=== PATIENT | male | born 1940 | race Caucasian/White ===

== ENCOUNTER → 2016-08-04 | Outpatient (CLI) | payer OTHER, BC ==
[~2016-08-04] VITALS: Ht 167.6 cm; Wt 96.4 kg
[~2016-08-04] MED LIST: AMBEREN PO; ASPIR 8181 M1 PO; CALCIUM 600 WI1 EAC5 PO; COUMADIN 5 MG TA5 M1 PO; DIAZEPAM 10 MG10 M1 PO; ENALAPRIL MALEAT5 M1 PO; ETODOLAC 400 M400 M1 PO; FISH OIL 1,0001 EAC5 PO; FISH OIL 1,001000 M2 PO; GRALISE600 MG PO; HYDROCODON-ACE1 EAC7 PO; HYDROCODON-ACE1 EACH PO; MAGOX 400400 MG PO; NABUMETONE 750750 M1 PO; PERCOCET 10-321 EACH PO; PERCOCET PO; TOPROL XL25 MG PO; VITAMIN D1000 UNI1 PO; VOLTAREN GEL 1100 G1 TOP; XARELTO10 MG PO; ZANAFLEX2 M1 PO; ZANAFLEX2 M2 PO; ZOCOR20 MG PO; ZOCOR40 MG PO; tegretol PO
--- NOTE | ~2016-08-04 | HPC ---
[facility] [address] [place] [address] PAIN MANAGEMENT CONSULTATION Name: YANETH DELA CRUZ Room #: REG KIMBERLY Pierre.#: [id number] Admission: 08/04/16 Attend Phys: Emeka Timmons MD Discharge: Date of : 39 Report #: [id number] THIS REPORT FOR: //name// CC: LAMIN Timmons DATE OF SERVICE: 08/04/2016 Follow up visit for lumbar spondylosis. The patient returns to pain clinic today after spending over an hour in the chair. Prior to that, he had been exceedingly pleased with cortisone injections performed as medial branch nerve blocks over a month ago. He reported that he had 100% pain relief from these injections exclamation point, we had talked about radiofrequency ablation. Long duration of response also gives us pause to decide whether or not a second medial branch injection with triamcinolone would provide him with lasting relief. If so, we will forego radiofrequency and perform this on occasion. Radiofrequency can be successful, but it is a much less successful procedure than the diagnostic. This is unsure due to the small lesions that are formed with the radiofrequency probe. Success rate range is in the percentage of 50-60%. There are some increased risks with this procedure as well with a larger needle and now he is on Xarelto. I have been allowing to go 2 days office of Xarelto for the medial branch blocks. I would have him go off for a bit longer to make sure that we do not have any bleeding or hematomas that are formed during the placement of these larger probes for radiofrequency. Since he has only had a single diagnostic medial branch nerve block procedure, second will be performed today again looking for duration of response as well as the diagnostic component of good relief. PHYSICAL EXAMINATION: GENERAL: He is pleasant, alert and oriented without signs of overmedication. He takes oxycodone under terms of an opioid agreement. VITAL SIGNS: Blood pressure of 135/88 and heart rate is 80. MUSCULOSKELETAL: Back is tender across the lumbosacral segment. He has pain with forward flexion and extension. Extension is worsened. Pain is localized more to the left than the right. There is a small scar in midline from previous surgery. He denies any sciatica at this time. IMPRESSION: 1. Lumbosacral spondylosis with facet pain. 2. Post-laminectomy syndrome. PROCEDURE: Medial branch nerve blocks under fluoroscopic guidance. DESCRIPTION OF PROCEDURE: He was taken to the fluoroscopic suite, placed prone, skin prepped with ChloraPrep. Skin anesthetized over the L2, L3, and L4 [address] [address] PAIN MANAGEMENT CONSULTATION Name: YANETH DELA CRUZ Room #: REG KIMBERLY Olguin#: [id number] Admission: 08/04/16 Attend Phys: Emeka Timmons MD Discharge: Date of : 39 Report #: [id number] branch nerve landmarks and the L5 dorsal ramus. These locations located in the sacral ala and the transverse processes were identified prior to prepping and the skin was prepped with ChloraPrep. A 25-gauge 3-1/2-inch spinal needle was then advanced into position overlying the target zones for the medial branch nerves on the transverse process immediately. The L5 dorsal ramus was identified on the sacral ala. Once needles were in place, I carefully aspirated for blood, there was no blood aspirated, and I gently injected through each needle, a total of 1 mL of 0.5% bupivacaine mixed with 10 mg of triamcinolone. He tolerated the procedure well and was taken to recovery room for observation. Under terms of our opioid agreement, I provided him with a prescription for oxycodone . The patient and I reviewed issues related to the use of opioids and other potent medications for the treatment of chronic pain. [place] issues to successful use begin with recognized reductions in daily pain as a result of medication. It is also important that the patient achieves improvement in daily activities as a result of medications. These activities are individualized for each patient. We discussed improvement related to their specific underlying level of function. We reviewed potential side effects and toxicity as well as drug interactions. Strategies have been employed to manage any problems identified. Finally, we discussed the issue of drug safety. The dramatic increase in emergency room visits, hospitalizations and deaths related to the misuse of prescription pain medications in [place] was discussed. The responsibilities of both physician and patient to safely use and manage medications to prevent injury and diversion were reviewed. The possibility of random drug screen was discussed and may be used as a tool to evaluate for proper use of medications. Other issues outlined in the opioid agreement were reviewed to insure adequate informed consent to treatment. All questions were answered. Prescriptions were provided. We will follow up in 3 months. . Follow up visit planned as needed for further treatments either medial branch nerve blocks or radiofrequency ablation. <ELECTRONICALLY SIGNED> By: Emeka Timmons MD 08/28/16 1130 [id number] Emeka Timmons MD /nt
[2016-08-04 10:04] VITALS: BP 133/80
== END | disposition home or self-care (01) ==
LOC: PAIN 07-21 07:42
DX: M47.817 Spondylosis without myelopathy or radiculopathy, lumbosacral region (principal); M96.1 Postlaminectomy syndrome, not elsewhere classified

== ENCOUNTER → 2016-10-06 | Outpatient (CLI) | payer OTHER, BC ==
[~2016-10-06] VITALS: Ht 167.6 cm; Wt 96.6 kg
--- NOTE | ~2016-10-06 | HPC ---
[facility] [address] [place] [address] PAIN MANAGEMENT CONSULTATION Name: YANETH DELA CRUZ Nick Room #: REG [facility] [id number] Admission: 10/06/16 Attend Phys: Virginia Pedraza MD Discharge: Date of : 39 Report #: [id number] THIS REPORT FOR: //name// CC: LAMIN Pedraza The patient was seen on 10/06/[address] Eugenio Pedraza. FOLLOWUP COMPLAINT: "Here for medication renewal and my dog of 16 years ." FOLLOWUP HISTORY: The patient is a 75-year-old gentleman who has been seen in the pain clinic in followed by Dr. Emeka Timmons in regards to chronic intractable pain. He has failed back syndrome. He continues to have pain and discomfort, which radiates down into his low back area. He has helped with use of both Voltaren gel as well as oxycodone tablets 1 p.o. b.i.d. He returns today indicating that his pain continues to be problematic. He has had some worsening of his pain especially since his dog of 16 years . He is saddened by this fact. He would like to have his medications renewed. IMPRESSION: 1. Chronic intractable back pain status post laminectomy. History of lumbar spondylosis, primarily on the left. History of facet joint injections in the past. 2. Osteophyte arthritis, left total knee replacement. 3. Hypertension. 4. Sleep apnea, obstructive. RECOMMENDATIONS: We will continue with his current medical regimen. Risks and benefits of his medications were reviewed. The patient will continue with Voltaren gel, oxycodone 10/325 b.i.d. and will call us if he has any problems with his medications. We would like to thank you for letting us participate in his care. We hope he continues to improve. By: [id number] Virginia Pedraza MD /nt
[2016-10-06 10:17] VITALS: BP 132/61
[2016-10-06 10:21] VITALS: BP 132/61
== END | disposition home or self-care (01) ==
LOC: PAIN 06:37
DX: G89.29 Other chronic pain (principal); M13.862 Other specified arthritis, left knee; I10 Essential (primary) hypertension; G47.33 Obstructive sleep apnea (adult) (pediatric)

== ENCOUNTER → 2016-11-15 | Outpatient (CLI) | payer OTHER, BC ==
[~2016-11-15] VITALS: Ht 167.6 cm; Wt 96.6 kg
--- NOTE | ~2016-11-15 | HPC ---
[facility] [address] [address] PAIN MANAGEMENT CONSULTATION Name: YANETH DELA CRUZ Nick Room #: [facility] [id number] Admission: 11/15/16 Attend Phys: Emeka Timmons MD Discharge: Date of : 39 Report #: [id number] THIS REPORT FOR: //name// CC: LAMIN Timmons DATE OF SERVICE: 11/15/2016 Followup visit for radiofrequency ablation of the left L5 dorsal ramus, L4, L3 and L2 medial branch nerves. The patient is here today for lumbar denervation on the left. He has had medial branch nerve blocks which provided nearly 100% pain relief. He was unable to return for radiofrequency procedure immediately following the diagnostic procedure and is here today to go forward with that. We have reviewed the procedure, risks, benefits in detail. He has discontinued his anticoagulant, Eliquis for 96 hours in anticipation of the injection. He scores his pain as 6/10, mostly across the low back, beltline, radiating very minimally into the hips and back of the legs, it does not extend below the posterior thigh. He describes it as always hurting regardless of activity, although it is worsened with back extension. MEDICATIONS: Reviewed and reconciled. ALLERGIES: QUININE and TIZANIDINE. PHYSICAL EXAMINATION: VITAL SIGNS: His blood pressure is 143/73, heart rate 70. His BMI is 34.4. MUSCULOSKELETAL: He moves from sitting to standing position and walk with good steady gait. He does not appear to be a fall risk. He has some limited range of motion and flexion, but pain when extension is most notable across the lumbosacral segment with localized tenderness. It also has occurred with rotational movements, worse on the left than the right. IMPRESSION: 1. Lumbar spondylosis, status post laminectomy. 2. Chronic cervicalgia with radiculopathy, currently doing well. 3. Hypertension. 4. Obstructive sleep apnea. PROCEDURE: Radiofrequency ablation left L5 dorsal ramus, left L4, L3, L2 medial branch nerves. [address] [address] PAIN MANAGEMENT CONSULTATION Name: YANETH DELA CRUZ Room #: REG [facility] Ignacio.#: [id number] Admission: 11/15/16 Attend Phys: Emeka Timmons MD Discharge: Date of : 39 Report #: [id number] PROCEDURE: After informed consent, the patient was taken to fluoroscopic suite where he was placed prone. C-arm guidance was utilized to facilitate the procedure. Skin was anesthetized overlying the target entry zones for the L5 dorsal ramus at the sacral ala as well as the L4, L3, and L2 medial branch nerves, all in the medial portion of the transverse process and superior articular process. A 20-gauge curved 10 mm active tip radiofrequency needles were then repositioned at each location. Sequentially each needle was tested for sensory and motor stimulation and the responses were recorded. We needed to reposition the L2 and L3 needles on several occasions until we achieved appropriate response for sensation. At no point, we received any motor stimulation within nerve when the needles were stimulated for motor activation at 2 hertz. Once needle location was felt to be appropriate, the probes were removed, 1 mL of 1% lidocaine injected through each needle and after waiting period of approximately 1 minute, an ablation procedure was performed at 80 degrees for 90 seconds simultaneously. The probe was removed prior to removing the needle and each needle and injected with 1 mL of 0.5% bupivacaine and 10 mg of triamcinolone. [place] were then removed. Tolerated the procedure well, was taken to recovery room for observation. During this time in recovery room, he had no complaints of pain or weakness in the lower extremities. A return appointment scheduled for 3-4 weeks, no treatment on the right will be performed immediately. We have not done diagnostic injections on the right to this point. I am hopeful that after we treat his most severely affected side at the left that he will possibly not require a similar procedure on the right, but time will tell. By: 1707 [id number] Emeka Timmons MD /nt
[2016-11-15 11:19] VITALS: BP 143/73
== END ==
LOC: PAIN 07:43
DX: M47.816 Spondylosis without myelopathy or radiculopathy, lumbar region (principal); M54.12 Radiculopathy, cervical region; I10 Essential (primary) hypertension; G47.33 Obstructive sleep apnea (adult) (pediatric)

== ENCOUNTER → 2016-12-06 | Outpatient (CLI) | payer OTHER, BC ==
[~2016-12-06] VITALS: Ht 167.6 cm; Wt 97.1 kg
[~2016-12-06] MED LIST changes: +OXYCODONE-ACET1 EAC2 PO
--- NOTE | ~2016-12-06 | HPC ---
[facility] [address] [address] PAIN MANAGEMENT CONSULTATION Name: YANETH DELA CRUZ Nick Room #: REG Kadi Pierre.#: [id number] Admission: 12/06/16 Attend Phys: Emeka Timmons MD Discharge: Date of : 39 Report #: [id number] THIS REPORT FOR: //name// CC: LAMIN Timmons DATE OF SERVICE: 12/06/2016 Followup visit for lumbar spondylosis. Please report that the patient has had an excellent response to his radiofrequency ablation, his pain score is at 2. He was little sore for the first couple of days following, but the pain has continued to make progress. He is walking better and has less pain across his back when he is standing. He is here today in followup. His only complaint is that he has some developing pain in his left hand. This is probably related to his spinal stenosis in the cervical region where we have treated him previously with epidural injections. I do not think it is bad enough at this stage we need to do anything. We have told him to continue to use good body mechanics and lifting and be careful with his neck and all activities. IMPRESSION: Significant improvement following lumbar radiofrequency. Followup visit on a p.r.n. basis. Another appointment is not scheduled at this time, we will see him as needed. By: [id number] [id number] Emeka Timmons MD /nt
[2016-12-06 13:32] VITALS: BP 143/69
== END ==
LOC: PAIN 06:36
DX: M47.816 Spondylosis without myelopathy or radiculopathy, lumbar region (principal); M48.06 Spinal stenosis, lumbar region

== ENCOUNTER → 2017-01-26 | Outpatient (CLI) | payer OTHER, BC ==
[~2017-01-26] VITALS: Ht 167.6 cm; Wt 95.3 kg
[2017-01-26 10:50] VITALS: BP 122/68
== END | disposition home or self-care (01) ==
LOC: PAIN 07:32
DX: M17.12 Unilateral primary osteoarthritis, left knee (principal); I10 Essential (primary) hypertension; G47.33 Obstructive sleep apnea (adult) (pediatric); Z98.890 Other specified postprocedural states

== ENCOUNTER → 2017-02-17 | Outpatient (CLI) | payer OTHER, BC ==
[~2017-02-17] VITALS: Ht 170.2 cm; Wt 95.8 kg
--- NOTE | ~2017-02-17 | HPC ---
[facility] [place] [address] PAIN MANAGEMENT CONSULTATION Name: YANETH DELA CRUZ Nick Room #: REG KIMBERLY Pierre.#: [id number] Admission: 02/17/17 Attend Phys: Emeka Timmons MD Discharge: Date of : 39 Report #: [id number] THIS REPORT FOR: //name// CC: LAMIN Timmons DATE OF SERVICE: 02/17/2017 DATE OF REGISTRATION: 02/17/2017. REASON FOR VISIT: Followup visit for chronic back pain without radiculopathy. SUBJECTIVE: The patient returns to pain clinic today and continues to have excellent response to the radiofrequency ablation on his right side. He presents today; however, with pain in his left. It has moved up slightly. The pain is associated with forward flexion and extension, prolonged sitting. He has tried medication, ice and heat, would like to see if we can perform the same beneficial treatment on the right that we did on the left. I reviewed his x-rays which shows that he has a marked degeneration of the L3-L4 disk with anterolisthesis and lateral listhesis to the left. This creates marked pressure on the facet joints and is the likely cause of his facet arthropathy and his low back pain. MEDICATIONS: He stopped his Xarelto in anticipation of an injection. He continues on oxycodone 10/325 q. 12 hours p.r.n., aspirin, fish oil, Zocor and diazepam p.r.n. 2-4 tablets daily. ALLERGIES: QUININE AND TIZANIDINE. 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 PHYSICAL EXAMINATION: GENERAL: He is pleasant 76-year-old. VITAL SIGNS: Blood pressure 131/62, heart rate 71. BMI 33. MUSCULOSKELETAL: He is able to move easily sitting to standing. He has pain both with flexion and extension, worse with extension. The pain is on the right exclusively and just lateral to the scar. This is the area where he has had the surgery and just above. Pain is also noted with lateral tilt, [id number] tilt. There are no radicular symptoms whatsoever and strength is normal in the lower extremities. IMPRESSION: Lumbar spondylosis on the right L3-L4, L4-L5. RECOMMENDATION: Medial branch nerve blocks. ____ perform nerve branch blocks [address] [address] PAIN MANAGEMENT CONSULTATION Name: YANETH DELA CRUZ Room #: REG CL Ignacio.#: [id number] Admission: 02/17/17 Attend Phys: Emeka Timmons MD Discharge: Date of : 39 Report #: [id number] at the L2, L3 and L4 transverse process. This will correspond to the L1, L2 and L3 medial branch nerves. PROCEDURE: Skin was prepped with ChloraPrep. Skin was anesthetized and 25-gauge needle was gently advanced into position on the medial aspect of the transverse process where it meets the superior articular process. Needle positions were confirmed, there was negative aspiration at each location. After negative aspiration, I injected through each needle one-half of a mL of 0.5% bupivacaine. There was no triamcinolone utilized for these diagnostic injections. Tolerated the procedure well and was taken to recovery room for 20 minutes and he was observed in movements We are awaiting at this time to determine his response to the treatments ____ favorable and given his good response to radiofrequency in the past, I would proceed directly to radiofrequency ablation at the followup visit. He will stay off his blood thinner again for that procedure for the appropriate amount of time described. By: 1312 1350 Emeka Timmons MD /nt
[2017-02-17 12:44] VITALS: BP 131/62
== END | disposition home or self-care (01) ==
LOC: PAIN 07:19
DX: M47.816 Spondylosis without myelopathy or radiculopathy, lumbar region (principal); G89.29 Other chronic pain; I10 Essential (primary) hypertension; M19.90 Unspecified osteoarthritis, unspecified site; Z88.8 Allergy status to other drugs, medicaments and biological substances; Z79.891 Long term (current) use of opiate analgesic; Z79.82 Long term (current) use of aspirin; Z79.899 Other long term (current) drug therapy

== ENCOUNTER → 2017-03-07 | Outpatient (CLI) | payer OTHER, BC ==
[~2017-03-07] VITALS: Ht 170.2 cm; Wt 96.2 kg
--- NOTE | ~2017-03-07 | HPC ---
[address] [address] PAIN MANAGEMENT CONSULTATION Name: LANIEYANETH Romero Room #: REG [facility] Ignacio.#: [id number] Admission: 03/07/17 Attend Phys: Emeka Timmons MD Discharge: Date of : 39 Report #: [id number] THIS REPORT FOR: //name// CC: LAMIN Timmons DATE OF SERVICE: 03/07/2017 DATE OF REGISTRATION: 03/07/2017 Followup visit for lumbar spondylosis with listhesis of L3 on L4 and degenerative disk disease L2-L3. The patient returns to pain clinic today to complete a radiofrequency ablation. He had a nearly complete pain relief on the left and has pain that remains on the right. We plan today to repeat the procedure, he has had diagnostic injections which were positive and favorable. The medial branch nerves that will be treated today are lumbar 1, 2 and 3 corresponding to the L2, L3 and L4 transverse process. The procedure is well understood by the patient, potential risks and benefits and we will proceed today with treatment. IMPRESSION: Preprocedural diagnosis is lumbar spondylosis with intractable low back pain. PROCEDURE: Radiofrequency ablation. PROCEDURE IN DETAIL: The patient was placed prone, skin was prepped with ChloraPrep. Skin was anesthetized over the right. A C-arm guidance was used throughout to advance the needles. After identifying the entry points and anesthetizing the skin, three 10 mm active tip 20 gauge RFK needles were advanced into position. Each needle was gently advanced over the junction of the transverse process and the superior articulating process by radiograph and by palpation. AP and lateral views were obtained to ensure good location. Testing then took place at each level separately testing both for appropriate sensory response at less than 0.5-0.6 and motor stimulation test negative to 1.5. These were accomplished and noted on the radiofrequency procedure report form. The probes were then removed from each needle and I injected 1 mL of 1% lidocaine through each needle and waited one minute. Probes were replaced into the needles and we performed simultaneous denervation procedures at 80 degrees centigrade for 90 seconds. Each needle with a curved bevel was then rotated 180 degrees and a second lesion performed. There was no discomfort or paresthesias experienced into the right leg during the procedure. At the conclusion of the second ablation, the probes were once again removed and through each needle, I injected 1 mL of 0.5% bupivacaine mixed with 10 mg of triamcinolone. The needles were then removed. Band aids were applied. The patient was taken to the recovery room and observed. There were no complications. He experienced no [address] [address] PAIN MANAGEMENT CONSULTATION Name: YANETH DELA CRUZ Room #: REG [facility].#: [id number] Admission: 03/07/17 Attend Phys: Emeka Timmons MD Discharge: Date of : 39 Report #: [id number] sensations of discomfort or weakness and was discharged in good condition. The patient called back 48 hours later to report that he remained pain free following the procedure. Follow up as needed. <ELECTRONICALLY SIGNED> By: Emeka Timmons MD 03/10/17 1351 [id number] Emeka Timmons MD /nt
[2017-03-07 13:25] VITALS: BP 142/64
== END ==
LOC: PAIN 07:02
DX: M47.896 Other spondylosis, lumbar region (principal); M54.5 Low back pain; Z88.8 Allergy status to other drugs, medicaments and biological substances; Z79.899 Other long term (current) drug therapy; Z79.82 Long term (current) use of aspirin; Z79.891 Long term (current) use of opiate analgesic

== ENCOUNTER → 2017-04-25 | Outpatient (CLI) | payer OTHER, BC ==
[~2017-04-25] VITALS: Ht 170.2 cm; Wt 95.6 kg
--- NOTE | ~2017-04-25 | HPC ---
[facility] [place] [address] PAIN MANAGEMENT CONSULTATION Name: YANETH DELA CRUZ Nick Room #: REG [facility] [id number] Admission: 04/25/17 Attend Phys: Emeka Timmons MD Discharge: Date of : 39 Report #: [id number] THIS REPORT FOR: //name// CC: LAMIN Timmons DATE OF SERVICE: 04/25/2017 Followup visit for chronic low back pain with radiculopathy as well as cervicalgia with radiculopathy. The patient returns to pain clinic today complaining mostly of pain in his coccyx, low back and both legs. His pain is a 5. It is worse with standing and walking. We talked today about x-rays. He has had previous MRIs, but he has not had flexion and extension views to see if there is instability. I provide him with medications under terms of an opioid agreement. His pain today is a 5/10. Medications help reduce that pain by about 50%. MEDICATIONS: Calcium carbonate, omega 3, enalapril, Xarelto, Zocor, aspirin, magnesium oxide, Voltaren gel, oxycodone 10/325 one tablet 4 times daily. PHYSICAL EXAMINATION: Pleasant and conversant. No signs of overmedication. No signs of depression. Blood pressure 141/67, heart rate 88, respirations 33. He has pain and tenderness across his low back that increases with flexion and extension. Straight leg raising bilaterally reproduces pain. Pain in his low back is deemed by the patient to be reduced by about 50-60% since radiofrequency ablation performed earlier this year. IMPRESSION: 1. Chronic low back pain with lumbar spondylosis and listhesis of L3 on L4, degenerative disk disease at multiple levels and spinal stenosis. 2. Management of high-risk medication. PLAN: 1. Flexion and extension x-ray views. 2. Renewal of pain medication. I have renewed his oxycodone and his Voltaren gel. Followup visit is scheduled in the pain clinic as needed. By: 1618 [id number] Emeka Timmons MD /nt
[2017-04-25 12:44] VITALS: BP 141/67
== END | disposition home or self-care (01) ==
LOC: PAIN 06:59
DX: Z76.0 Encounter for issue of repeat prescription (principal); M47.896 Other spondylosis, lumbar region; M43.16 Spondylolisthesis, lumbar region; M51.36 Other intervertebral disc degeneration, lumbar region; M48.061 Spinal stenosis, lumbar region without neurogenic claudication; Z79.891 Long term (current) use of opiate analgesic; Z79.82 Long term (current) use of aspirin; Z79.899 Other long term (current) drug therapy; Z88.1 Allergy status to other antibiotic agents; Z88.4 Allergy status to anesthetic agent

== ENCOUNTER → 2017-07-14 | Outpatient (CLI) | payer OTHER, BC ==
[~2017-07-14] VITALS: Ht 170.2 cm; Wt 97.7 kg
--- NOTE | ~2017-07-14 | HPC ---
[facility] [place] [address] PAIN MANAGEMENT CONSULTATION Name: YANETH DELA CRUZ Nick Room #: REG [facility].#: [id number] Admission: 07/14/17 Attend Phys: Emeka Timmons MD Discharge: Date of : 39 Report #: [id number] THIS REPORT FOR: //name// CC: LAMIN Timmons DATE OF SERVICE: 07/14/2017 DATE OF REGISTRATION: 07/14/2017 CHIEF COMPLAINT: Low back pain with radiation into the left hip. The patient returns to pain clinic today and is having increasing pain in his hip, it is affecting his gait and he has an antalgic gait. He has not fallen and is not a fall risk, but he is worried about the persistent pain that seems to be worsening. He has responded nicely to epidural injections in the past. MEDICATIONS: Reviewed and reconciled. He is using Percocet 10/325 twice a day and Voltaren gel 1%. CDC guidelines and opioid risks were reviewed. He has had a recent buccal drug screen appropriate for medications. An opioid risk tool has been evaluated. He denies any current pain associated with osteoarthritis, but has been seen often for cervical and lumbar spondylosis. Left knee replacement effectively eliminated much of his left knee pain, but other joints may pose a problem in the future. He has been on Xarelto, but has stopped it 3 days ago in anticipation with injection. He is on medication for high blood pressure. He does not smoke nor drink alcohol. PHYSICAL EXAMINATION: Blood pressure is 144/70, heart rate 74. He has pain across his low back radiating into the left sacroiliac region and down into the hip. Straight leg raising is positive. Gait is antalgic. Sensation and strength are intact. IMPRESSION: 1. Low back pain with radiculopathy, spondylosis and listhesis of L3 and L4. Degenerative disk disease at multiple levels and spinal stenosis. 2. Management of high risk medications under terms of written opioid agreement. PROCEDURE: Epidural steroid injection L3-L4 under fluoroscopic guidance. [address] [address] PAIN MANAGEMENT CONSULTATION Name: YANETH DELA CRUZ Room #: REG KIMBERLY Olguin#: [id number] Admission: 07/14/17 Attend Phys: Emeka Timmons MD Discharge: Date of : 39 Report #: [id number] DESCRIPTION OF PROCEDURE: He was taken to fluoroscopic suite, placed prone, skin prepped with ChloraPrep. Skin anesthetized over the L4-L5 interspace. A 20-gauge Tuohy epidural needle advanced in the epidural space with loss of resistance. There was no blood or CSF aspirated. 1 mL of Omnipaque injected. Good spread of dye observed in the epidural space followed by 3 mL of 0.5% lidocaine mixed with 80 mg of triamcinolone. He tolerated the procedure well, was observed for 45 minutes and discharged. Followup visit planned in 3 months. By: [id number] [id number] MD clyde Pratt
[2017-07-14 13:40] VITALS: BP 141/60
== END | disposition home or self-care (01) ==
LOC: PAIN 06:49
DX: M47.26 Other spondylosis with radiculopathy, lumbar region (principal); M43.16 Spondylolisthesis, lumbar region; I10 Essential (primary) hypertension; M19.90 Unspecified osteoarthritis, unspecified site; Z98.890 Other specified postprocedural states; Z79.891 Long term (current) use of opiate analgesic; Z79.899 Other long term (current) drug therapy; Z96.652 Presence of left artificial knee joint; Z88.8 Allergy status to other drugs, medicaments and biological substances; Z79.82 Long term (current) use of aspirin

== ENCOUNTER → 2017-09-12 | Outpatient (CLI) | payer OTHER, BC ==
[~2017-09-12] VITALS: Ht 170.2 cm; Wt 95.8 kg
[~2017-09-12] MED LIST changes: +VOLTAREN GEL 1100 G2 TOP
--- NOTE | ~2017-09-12 | HPC ---
[facility] [address] [place] [address] PAIN MANAGEMENT CONSULTATION Name: YANETH DELA CRUZ Nick Room #: REG FAITHKadi Pierre.#: [id number] Admission: 09/12/17 Attend Phys: Emeka Timmons MD Discharge: Date of : 39 Report #: [id number] THIS REPORT FOR: //name// CC: LAMIN Timmons DATE OF SERVICE: 09/12/2017 HISTORY OF PRESENT ILLNESS: Followup visit for low back pain with radiculopathy. The patient returns to pain clinic today for an epidural injection. He has a left lateral listhesis post-laminectomy and spinal stenosis; it just responded nicely to epidural injection. He would like to repeat his epidural injection today and I have agreed to do so. Part of our rationale for the use of epidural injections on every few months basis is to limit his opioid medication. He is on oxycodone 10/325 and we have been able to keep that at 2 tablets a day. He is grateful for it. Uses it when the pain is severe. He has also used Voltaren gel and I agreed to renew that for him as well. I reviewed the CDC guidelines with him, opioid risks reviewed as well as side effects. He has been using diet and medication to assist with any constipating effects. He has no cognitive side effects. With medication, his pain score is a 4. It can double of that without medication. PQRS review shows that he has no history of osteoarthritis. Has a BMI of 33.1. VITAL SIGNS: Blood pressure 162/76, heart rate 73, respirations are 16, O2 sat 93 on room air. Pain intensity is a 4. He has not been a fall risk up until recently, but last month, stood up and his right leg gave out and he fell onto an end table. He believes that this is related to the pain and the radiculopathy. He is on a blood thinner, Xarelto, which has been discontinued for 72 hours in anticipation of injection. He is not being treated for hypertension. I have him on an opioid agreement, which was first established in 11/2015 and he has completed an opioid risk tool, which shows that he is a low risk for addiction with 0 score. Functional assessment tool score is 40/70 showing that there is interference in several activities of daily living including sleep, normal work and relationships with others at the level of 7/10. PHYSICAL EXAMINATION: Beyond the PQRS reveals a pleasant, alert and oriented without signs of overmedication. He moves from sitting to standing position independently, walks with an antalgic gait. Straight leg raising is positive bilaterally, worse on the left than the right. Sensation is intact. Deep tendon reflexes are absent in the lower extremities. This is important because [address] [address] PAIN MANAGEMENT CONSULTATION Name: YANETH DELA CRUZ Room #: REG KIMBERLY Olguin#: [id number] Admission: 09/12/17 Attend Phys: Emeka Timmons MD Discharge: Date of : 39 Report #: [id number] of his history of spinal issues with spinal stenosis in the cervical region. IMPRESSION: 1. Low back pain with radiculopathy, spondylosis and lateral listhesis of L3 on L4. He has degenerative disk disease at multiple levels and a history of spinal stenosis. 2. Management of opioid medications under terms of written opioid agreement. PROCEDURE: Lumbar epidural injection under fluoroscopic guidance. DESCRIPTION OF PROCEDURE: Taken to fluoroscopic suite, placed prone, skin prepped with ChloraPrep. Skin anesthetized over the L3-L4 interspace. A 20-gauge Tuohy epidural needle advanced left of midline. No blood or CSF aspirated. A 1 mL of Omnipaque injected with good spread of dye observed in the epidural space followed by 3 mL of 0.25% lidocaine mixed with 80 mg of triamcinolone. He tolerated the procedure well, was observed for 45 minutes and discharged. Follow up as needed. <ELECTRONICALLY SIGNED> By: Emeka Timmons MD 09/14/17 1640 [id number] Emeka Timmons MD /nt
[2017-09-12 10:13] VITALS: BP 162/76
== END ==
LOC: PAIN 07:35
DX: M54.16 Radiculopathy, lumbar region (principal); M47.896 Other spondylosis, lumbar region; F11.90 Opioid use, unspecified, uncomplicated

== ENCOUNTER → 2017-11-24 | Outpatient (CLI) | payer OTHER, BC ==
[~2017-11-24] VITALS: Ht 170.2 cm; Wt 93.6 kg
--- NOTE | ~2017-11-24 | HPC ---
[facility] [place] [address] PAIN MANAGEMENT CONSULTATION Name: YANETH DELA CRUZ Nick Room #: REG Kadi Pierre.#: [id number] Admission: 11/24/17 Attend Phys: Emeka Timmons MD Discharge: Date of : 39 Report #: [id number] THIS REPORT FOR: //name// CC: LAMIN Timmons DATE OF SERVICE: 11/24/2017 Followup visit for lumbar radiculopathy. The patient is here today for repeat epidural injection. He has had a previous laminectomy. He has a lateral listhesis above the level of his previous surgery, which has resulted in neural foraminal narrowing and recurring lumbar radiculopathy. He does not want additional surgery and is fortunate that epidural injections performed on an intermittent basis have provided good relief. In 2016, we provided an injection in June and he has had subsequent injections in August and requests one today. This will be his third injection in the 6 months. Reports that the pain relief is quite dramatic, almost 90-100% and lasts anywhere from 2 months to 2-1/2 months. The pain is now returning and is a 5-6/10. He has pain almost exclusively through the L3-L4 distribution into the anterior lower thigh and involving the knee. He describes it as a deep ache. It was so significant around the knee that he went to see an orthopedic surgeon to perform testing and concluded that the pain was radicular and not related to his knee. In addition to intermittent injections, he remains on an opioid agreement and takes oxycodone 10/325 one tablet twice daily as needed for severe pain. He has been using diclofenac gel both of which I provide for him under terms of our agreement. INTERVAL HISTORY: Has been negative. He has had no significant hospitalizations, Emergency Room visits or other changes. All medications were reviewed and reconciled. He is not a fall risk. He has completed an opioid risk tool and is at low risk for addiction. He is on Xarelto, which he takes for deep venous thrombosis. He is aware of the concern for epidural injections and blood thinners and discontinued his Xarelto four days ago. PHYSICAL EXAMINATION: Pleasant 76-year-old. Blood pressure 136/63, heart rate 78. His BMI is 32.3. Moves from sitting to standing position, ambulates with mild antalgic feature. He has significant range of motion restrictions in flexion and extension. Examination of the spine reveals scar over the lumbosacral segment from his previous laminectomy. It is nontender. Straight leg raising bilaterally reproduces symptomatic radiculopathy, worse on the right than the left involving L3-L4 distribution. St[place] [address] PAIN MANAGEMENT CONSULTATION Name: YNAETH DELA CRUZ Room #: REG KIMBERLY Olguin#: [id number] Admission: 11/24/17 Attend Phys: Emeka Timmons MD Discharge: Date of : 39 Report #: [id number] IMPRESSION: Lumbar radiculopathy. PROCEDURE: Lumbar epidural injection at L3-L4 under fluoroscopic guidance. PROCEDURE: He was taken to fluoroscopic suite, placed prone, skin prepped with ChloraPrep. Skin anesthetized over L3-L4. A 20-gauge Tuohy epidural needle advanced in the epidural space with loss of resistance. There was no blood or CSF aspirated. 1 mL of Omnipaque injected. Good spread of dye observed in the epidural space followed by 3 mL of 0.5% lidocaine mixed with 80 mg of triamcinolone. He tolerated the procedure well. He was observed for 45 minutes and discharged. Follow up as needed. By: [id number] Emeka Timmons MD /nt
[2017-11-24 12:30] VITALS: BP 136/63
== END | disposition home or self-care (01) ==
LOC: PAIN 05:41
DX: M54.16 Radiculopathy, lumbar region (principal); G89.29 Other chronic pain; I82.409 Acute embolism and thrombosis of unspecified deep veins of unspecified lower extremity; Z79.01 Long term (current) use of anticoagulants; Z79.891 Long term (current) use of opiate analgesic; Z98.890 Other specified postprocedural states; Z79.82 Long term (current) use of aspirin; Z79.899 Other long term (current) drug therapy; Z88.8 Allergy status to other drugs, medicaments and biological substances; Z68.32 Body mass index [BMI] 32.0-32.9, adult

== ENCOUNTER → 2018-01-19 | Outpatient (CLI) | payer OTHER, BC ==
[~2018-01-19] VITALS: Ht 170.2 cm; Wt 93.2 kg
--- NOTE | ~2018-01-19 | HPC ---
[facility] [place] [address] PAIN MANAGEMENT CONSULTATION Name: YANETH DELA CRUZ Room #: REG KIMBERLY Pierre.#: [id number] Admission: 01/19/18 Attend Phys: Emeka Timmons MD Discharge: Date of : 39 Report #: [id number] THIS REPORT FOR: //name// CC: LAMIN RAM Physician staff Emeka Timmons DATE OF SERVICE: 01/19/2018 Followup visit for post-laminectomy syndrome with radiculopathy. The patient is here today requesting another epidural injection. He had 6 weeks of nearly complete pain relief. This has been a repeating pattern. We feel quite sure that this is diagnostic of his area of pain where he has a lateral listhesis above the level of his surgery. This results in neural foraminal narrowing. We again discussed surgery and spinal cord stimulation, neither of which he is interested in at this time given the fact that he gets sustained relief from epidural injection of such a dramatic degree. We are pushing the limits allowed by Medicare and we talked about that as well. I prefer not to provide so many injections, but we space them evenly. He would like to proceed today with another injection as pain is returning to the same levels, to 5 or 6 across his low back, radiates into the right anterior leg consistent with the level seen on his x-rays. PQRS reviewed, was essentially unchanged from November. All medications were reviewed and reconciled. He has not fallen in the last 2 months. He is at low risk for addiction and is on an opioid agreement for a very small amount of oxycodone provided for him. He was given 60 tablets per month of oxycodone 10/325 equating to an MME of roughly 30, although he does not take it at that higher level each day. He is on a blood thinner, Xarelto, which was discontinued in anticipation of his injections for over 72 hours. PHYSICAL EXAMINATION: GENERAL: Pleasant, alert and oriented, without signs of excessive pain today. He is able to move independently from sitting to standing, although he uses arms to push up from the chair. VITAL SIGNS: His blood pressure 136/63, heart rate 78, respirations 16, BMI32.3. MUSCULOSKELETAL: He has straight leg raising, reproducing symptoms in the right L3-L4 distribution. Sensation and strength are intact. There is a scar in the back from previous surgery. [address] [address] PAIN MANAGEMENT CONSULTATION Name: YANETH DELA CRUZ Room #: REG KIMBERLY Olguin#: [id number] Admission: 01/19/18 Attend Phys: Emeka Timmons MD Discharge: Date of : 39 Report #: [id number] IMPRESSION: Lumbar radiculopathy, L3-L4 on the right. PROCEDURE: Epidural steroid injection under fluoroscopic guidance. DESCRIPTION OF PROCEDURE: The patient was taken to the fluoroscopic suite, placed prone, skin prepped with ChloraPrep. Skin anesthetized over the L3-L4 interspace. A 20-gauge Tuohy epidural needle advanced at first attempt in the epidural space with loss of resistance technique. There was no blood or CSF aspirated. 1 mL of Omnipaque was injected. Good spread of dye observed in the epidural space followed by 3 mL of 0.5% lidocaine mixed with 80 mg of triamcinolone. He tolerated the procedure well and was observed for 45 minutes and discharged. Followup visit planned as needed. We will try to space his epidural injections as far apart as possible and we will try to limit his opioid medications given the current climate with opioid. I should report, however, that the medication provides him with substantial relief with very few side effects. They improve his day-to-day function and he understands clearly the importance of safeguarding all medications. Medications will be provided as needed at the level of about 2 tablets a day p.r.n. By: [id number] Emeka Timmons MD /nt
[2018-01-19 09:14] VITALS: BP 118/54
== END | disposition home or self-care (01) ==
LOC: PAIN 07:08
DX: M54.16 Radiculopathy, lumbar region (principal); M96.1 Postlaminectomy syndrome, not elsewhere classified; G89.29 Other chronic pain; Z98.890 Other specified postprocedural states; Z79.891 Long term (current) use of opiate analgesic; Z79.01 Long term (current) use of anticoagulants; Z88.8 Allergy status to other drugs, medicaments and biological substances; Z79.82 Long term (current) use of aspirin; Z79.899 Other long term (current) drug therapy

== ENCOUNTER → 2018-05-04 | Outpatient (CLI) | payer OTHER, BC ==
[~2018-05-04] VITALS: Ht 170.2 cm; Wt 90.1 kg
--- NOTE | ~2018-05-04 | HPC ---
[facility] [address] [place] [address] PAIN MANAGEMENT CONSULTATION Name: YANETH DELA CRUZ Nick Room #: REG KIMBERLY Olguin#: [id number] Admission: 05/04/18 Attend Phys: Santa Kang Discharge: Date of : 39 Report #: [id number] THIS REPORT FOR: //name// CC: Santa RAM MD Physician staff Emeka Timmons MD DATE OF SERVICE: 05/04/2018 REASON FOR VISIT: Followup visit today for post-laminectomy syndrome with radiculopathy. HISTORY OF PRESENT ILLNESS: The patient returns to the pain clinic today for a followup for his medication refill for his lower back pain and right knee pain. The patient states that he is feeling much better since he has been doing physical therapy at [facility]. He says his pain in his knees feel much better and his back pain has improved some since he has been doing physical therapy and walking. He actually has lost he states 20 pounds, according to our records it is more like 12 since August, but nonetheless he has been losing weight and you can definitely tell that in his appearance today. He seems to be in good spirits today as well. He is also requesting a new medication for us Valium. [facility]. He takes 10 mg tablets approximately 2 times a week, so low dose of this medication. ALLERGIES: THE PATIENT IS ALLERGIC TO QUININE, TIZANIDINE. MEDICATIONS: Oxycodone 10/325 twice a day, diclofenac gel to lower extremities, magnesium oxide 400 mg, aspirin 81 mg, Zocor 20 mg, Xarelto 10 mg, enalapril 5 mg, fish oil, vitamin D3 with calcium and diazepam 10 mg. PQRS: 1. The patient states he has osteoarthritis history in his knees and back. No history of rheumatoid arthritis. 2. Height is 5 feet 7 inches, weight is 198. BMI is 31.1. 3. Vital signs: Blood pressure 140/62, pulse is 93, respirations 16, oxygen is 97. 4. Pain intensity 2-4. 5. Fall risk. Denies dizziness. Denies needing help walking or standing and has not fallen in the last 3 months. 6. The patient is on blood thinner, Xarelto. 7. History of hypertension is yes. 8. Opioid therapy is greater than 6 weeks, therefore an opioid contract is on the chart. 9. Risk assessment tool is low. [address] [address] PAIN MANAGEMENT CONSULTATION Name: YANETH DELA CRUZ Room #: REG CLI Clau#: [id number] Admission: 05/04/18 Attend Phys: Santa Kang Discharge: Date of : 39 Report #: [id number] 10. Functional assessment is 39/70. 11. No recreational drug use, never smoked tobacco products and does not use alcohol. We performed [facility] on the patient as well as [place]. The patient is appropriate with his narcotic fills by only Dr. Emeka Timmons with no other aberrant behaviors noted on them. PHYSICAL EXAMINATION: GENERAL: The patient is a pleasant, alert and orientated without signs of excessive pain today. He moved independently in the halls and in his chair. The patient has significant range of motion restrictions from flexion and extension. He does have nontenderness though in his back. He is able to straight leg, positive bilateral, worse on the left than the right. HEENT: Normocephalic, atraumatic. Extraocular eye muscles are intact. Mucous membranes are moist. Hearing is intact. ASSESSMENT: 1. Low back pain with lumbar radiculopathy. 2. Spondylosis with degenerative disk disease, multiple levels. 3. Pain management of opioid medicine, complex management. We reviewed the fact that opiate medications are being used to provide analgesia adequate to support activities of daily living, not attempting to achieve a specific pain score on the 0-10 Visual Analog Scale. The current opiate medications are providing sufficient analgesia to allow the patient to participate in activities of daily living. The patient is not exhibiting any aberrant behavior suggestive of drug diversion. The patient is not having any adverse reactions to medications. The patient is not suffering from daytime somnolence or mental acuity changes. The patient is managing opiate-induced constipation with appropriate [id number] agents and dietary considerations. The patient was counseled on concern for caution with operating a motor vehicle while using opiate medications. A physical exam was performed and the patient's functional status was evaluated. All patients with back pain were advised against the bed rest greater than 4 days and were advised to return to normal activities. Pain score assessment was noted and the treatment plan was reviewed with the patient. All current medications, both prescribed and OTC were reviewed and reconciled on the electronic medical record. Tobacco screening was accomplished and smoking cessation was advised when indicated. BMI was noted and diet/exercise modification was recommended for all patients following outside normal parameters. I reviewed with the patient today their responsibilities to safeguard prescription medications, reviewed their responsibility to utilize medications [facility] [address] [place] [address] PAIN MANAGEMENT CONSULTATION Name: YANETH DELA CRUZ Room #: REG KIMBERLY Olguin#: [id number] Admission: 05/04/18 Attend Phys: Santa Kang Discharge: Date of : 39 Report #: [id number] only as prescribed by the physician. They are to seek and receive pain medications only from 1 physician group ( [facility]). They are to use 1 pharmacy and keep the clinic informed if they change pharmacies. Their responsibilities include making followup visits in a timely fashion and to avoid abrupt discontinuation of medication usage. Their responsibilities further include bringing their medications (bottles from the pharmacy with residual pills) to the visit for possible confirmation of pill counts and the patient understands it is their responsibility to submit to random drug screens to ensure both that the medications prescribed are present, and that no other controlled substances are present. All prescriptions provided today were generated electronically. PLAN: Today: 1. The patient was given prescriptions refills for his Percocet 10/325 one p.o. b.i.d., quantity 60 for today, release in 4 weeks, release in 8 weeks. The patient was given 3 months due to the CDC guidelines of under 90 mEq of morphine. The patient is actually on 45 mEq, therefore our office is allowing him for 3 months of medications. 2. The patient was given a Voltaren prescription to use on his extremities. 3. After discussion since [facility] no [facility] his [facility], Dr. Emeka Timmons was in agreement to give the patient a script for Valium 10 mg 15 tablets, takes 1-2 on a weekly basis with 2 additional refills for his 3 months. 4. The patient was encouraged to continue physical therapy with [facility] and to continue his weight loss program since it is helping his pain scores to be decreased and able to function better. 5. The patient will be seen in followup by Dr. Emeka Timmons or myself in 3 months for medication management or for further epidurals if the patient needs them at that time. The patient's plan of care was discussed in collaboration with Dr. Emeka Timmons. <ELECTRONICALLY SIGNED> By: Santa Kang 05/08/18 0711 [id number] Santa Kang /nt
[2018-05-04 08:38] VITALS: BP 140/62
== END ==
LOC: PAIN 06:59
DX: M47.27 Other spondylosis with radiculopathy, lumbosacral region (principal); M51.16 Intervertebral disc disorders with radiculopathy, lumbar region; M96.1 Postlaminectomy syndrome, not elsewhere classified; Z79.891 Long term (current) use of opiate analgesic; Z79.899 Other long term (current) drug therapy

== ENCOUNTER → 2018-06-05 | Outpatient (CLI) | payer OTHER, BC ==
[~2018-06-05] VITALS: Ht 170.2 cm; Wt 91.0 kg
--- NOTE | ~2018-06-05 | HPC ---
[facility] [address] [address] PAIN MANAGEMENT CONSULTATION Name: YANETH DELA CRUZ Nick Room #: REG [facility].#: [id number] Admission: 06/05/18 Attend Phys: Emeka Timmons MD Discharge: Date of : 39 Report #: [id number] THIS REPORT FOR: //name// CC: LAMIN Deutsch MD Physician staff Emeka Timmons DATE OF SERVICE: 06/05/2018 REASON FOR VISIT: Followup visit for chronic low back pain with spondylosis, post-laminectomy syndrome with radiculopathy. HISTORY OF PRESENT ILLNESS: The patient returns to the Pain Clinic today in followup. He was at [facility] when one of the prisoners while stepping by him sat on his left side aggravating his low back. He does not have radiation at this time, although the pain is located along the area of the sacroiliac joint and the lumbar facet. It is a deep aching sensation. Because of the increased pain, he began using his medication at a higher dose taking an extra oxycodone on several days. This unfortunately resulted in the use of all of his medication before, his scheduled refill and with the new tightening restrictions on opioids throughout the insurance industry. He was unable to refill and he made an appointment today. PHYSICAL EXAMINATION: He reports the pain today as a 5, but as high as a 9 or 10. Pain is across his low back. It radiates some into his left upper leg posteriorly but no further. He describes it as stabbing sensation. It is exacerbated by lying down and sleeping. He has been able to find relief with physical therapy . Pain is increased also with standing, walking, bending and sitting for too long. PAST MEDICAL HISTORY: Significant for partial thyroidectomy, hypertension, UPPP for ALBARO, DVT with iliac stents and is currently on blood thinner, cataracts and history of partial left knee replacement. PHYSICAL EXAMINATION: GENERAL: Appears to be in some pain today. VITAL SIGNS: His blood pressure 146/66, heart rate 81 and BMI is 31.4. MUSCULOSKELETAL: He is able to move independently from sitting to standing, does not appear to be a fall risk. He has pain and tenderness across his low back, pain with forward flexion, extension and rotation. Pain is located to the left of midline and is located above the sacroiliac joint and lateral to the fact. There is some myofascial spasm in this location. IMPRESSION: Post-laminectomy syndrome with facet arthropathy versus sacroiliac [facility] [address] [place] [address] PAIN MANAGEMENT CONSULTATION Name: YANETH DELA CRUZ Nick [facility] [id number] Admission: 06/05/18 Attend Phys: Emeka Timmons MD Discharge: Date of : 39 Report #: [id number] joint pain. RECOMMENDATIONS: We are going to hold off on injection for right now and we are going to see if this passes with ongoing exercise. I have given him some Sathya's flexion exercises recommendations. He has them at home. He will continue to do those daily as well as walking. We talked about the importance of movement and trying to resolve this exacerbation of his low back pain and he will continue to try and do so with the additional medication. I have allowed him to take one extra oxycodone for the next month. MME is 45. Notes, this were provided on the prescription for the pharmacist. He has a refill prescription for June. By: [id number] Emeka Timmons MD /nt
[2018-06-05 12:37] VITALS: BP 146/66
== END ==
LOC: PAIN 07:51
DX: M96.1 Postlaminectomy syndrome, not elsewhere classified (principal); M54.16 Radiculopathy, lumbar region; M47.896 Other spondylosis, lumbar region

== ENCOUNTER → 2018-07-24 | Outpatient (CLI) | payer OTHER, BC ==
[~2018-07-24] VITALS: Ht 170.2 cm; Wt 90.8 kg
[~2018-07-24] MED LIST changes: +ZANAFLEX2 MG PO
--- NOTE | ~2018-07-24 | HPC ---
[facility] [place] [address] PAIN MANAGEMENT CONSULTATION Name: LANIEYANETH [facility] [id number] Admission: 07/24/18 Attend Phys: Emeka Timmons MD Discharge: Date of : 39 Report #: [id number] THIS REPORT FOR: //name// CC: LAMIN RAM Physician staff Emeka Timmons DATE OF SERVICE: 07/24/2018 Followup visit for chief complaint of chronic low back pain, post-laminectomy syndrome. This is a routine followup for the patient who I see intermittently for spinal pain. He has suffered from both cervical radiculopathy and lumbar and has responded nicely to injections. In addition to injections, I have provided him with opioid medications under terms of our written opioid agreement. His use is modest. He has received oxycodone 10/325 at a level of 2 to the maximum of 3 tablets a day. His MME is in the range of 30-40. He is here today for medication, reporting his medication is working effectively without side effects. He carefully safeguards his medication under terms of our opioid agreement. I have checked the [employer] prescription drug monitoring program during and before his visit, which shows that he has refilled his prescriptions at appropriate intervals. PQRS REVIEW: He has some history of spondylitic arthritis, but is not currently complaining much of additional joint pain. He has a history of osteoarthritis. His BMI is 31.3. His pain intensity is 4/10. He is not a fall risk. He is on the blood thinner Xarelto. All medications have been reviewed and reconciled. He is not currently taking an antihypertensive. He is on an opioid agreement, which includes important aspects of safeguarding. He is on an intermittent benzodiazepine and we have had several discussions about the interactions which can lead to significant sedation. He has been on these medications for many years without issue and I will renew them and provide preauthorization through his insurance and his pharmacy if necessary. He appreciates the benefit that he receives from both of these medications and the side effects again are manageable. PHYSICAL EXAMINATION: He is pleasant, alert, oriented. Blood pressure 146/66, heart rate 81, respirations 14, his BMI 31.4. He can move easily from sitting to standing position and ambulates with a stable gait. He has tenderness of the neck and low back. IMPRESSION: 1. 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 2. History of cervical radiculopathy. 3. Iliac stents, on blood thinner. 4. Osteoarthritis with history of partial left knee replacement. 5. Management of high risk medications under terms of an opioid agreement. Medications were renewed. A phone call was placed to his pharmacy to clarify his use of diazepam. A followup visit is scheduled in 3 months. By: [id number] Emeka Timmons MD /nt
[2018-07-24 12:43] VITALS: BP 131/58
--- NOTE | 2018-07-24 12:51 | NUR ---
Pain Clinic Assessment: 1. History of Osteoarthritis: Not Applicable History of Rheumatoid Arthritis: Not Applicable 2. Height: 5 ft. 7 in. 170.2 cm. Weight: 200.2 lb. oz. 90.810 kg. Patient's BMI: 31.3 3. Vital Signs: BP: 131/58 Pulse: 84 Resp: 18 Temp: 02 Sat: 96 ECG Mon: 4. Pain Intensity: 4 5. Fall Risk: Dizziness: N Needs help standing or walking: N Fallen in the last 3 months: N Fall risk comments: 6. Patient on Blood Thinner: XARELTO 7. History of Hypertension: N 8. Opioid Therapy greater than 6 weeks: Y Opiate Contract Signed: 11/26/15 9. Risk Assessment Tool Provided: Opioid Risk Tool 10. Functional Assessment Tool: 11. Recreational Drug Use: Never Drug Type: Tobacco Use: Never Smoker Tobacco Type: Amount or Packs/day: How Many Years: Alcohol Use: No Frequency: Quant:
== END ==
LOC: PAIN 07:38
DX: M54.12 Radiculopathy, cervical region (principal); M96.1 Postlaminectomy syndrome, not elsewhere classified; M17.12 Unilateral primary osteoarthritis, left knee; Z96.652 Presence of left artificial knee joint; Z95.820 Peripheral vascular angioplasty status with implants and grafts

== ENCOUNTER → 2018-10-02 | Outpatient (CLI) | payer OTHER, BC ==
[~2018-10-02] VITALS: Ht 170.2 cm; Wt 90.2 kg
[2018-10-02 10:49] VITALS: BP 124/56
--- NOTE | 2018-10-02 10:57 | NUR ---
Pain Clinic Assessment: 1. History of Osteoarthritis: Not Applicable History of Rheumatoid Arthritis: Not Applicable 2. Height: 5 ft. 7 in. 170.2 cm. Weight: 198.8 lb. oz. 90.175 kg. Patient's BMI: 31.1 3. Vital Signs: BP: 124/56 Pulse: 71 Resp: 16 Temp: 02 Sat: 97 ECG Mon: 4. Pain Intensity: 2 5. Fall Risk: Dizziness: N Needs help standing or walking: N Fallen in the last 3 months: N Fall risk comments: 6. Patient on Blood Thinner: XARELTO 7. History of Hypertension: N 8. Opioid Therapy greater than 6 weeks: Y Opiate Contract Signed: 11/26/15 9. Risk Assessment Tool Provided: Opioid Risk Tool 10. Functional Assessment Tool: 11. Recreational Drug Use: Never Drug Type: Tobacco Use: Never Smoker Tobacco Type: Amount or Packs/day: How Many Years: Alcohol Use: No Frequency: Quant:
--- NOTE | 2018-10-03 08:39 | HPC ---
[facility] [address] [place] [address] PAIN MANAGEMENT CONSULTATION Name: YANETH DELA CRUZ Room #: REG KIMBERLY Olguin#: [id number] Admission: 10/02/18 ������������������ Attend Phys: Santa Kang Discharge: ������������������ Date of : 39 Report #: [id number] THIS REPORT FOR: //name// CC: Santa RAM Physician staff DATE OF SERVICE: 10/02/2018 CHIEF COMPLAINT: Chronic low back pain, post-laminectomy syndrome. HISTORY OF PRESENT ILLNESS: This is a very pleasant 77-year-old gentleman who returns to the Pain Clinic today for followup for his medications. He tells me that he is doing quite well since his last injection. He tells me that he is trying to wean down on some of his medications and his pain score is a 2/10 today, which is significantly lower he tells me for him. He tells me that he has not been taking tizanidine. He is afraid to try that medicine, but he has been taking his diazepam and his Percocet. He actually returned his 8-week Percocet as he has not needed to fill that and he is a couple of weeks past time for refill. He tells me that he was thinking about getting an injection his next visit probably before 3 months. At that time, he thinks that he will try and wean down his oxycodone because he would like to get off his medications since he is doing so much better. His complaints today are in his low back and left buttock. He denies any constipation. He does take some lngm-eko-cowcnrs stool softeners, but he thinks since he has decreased his narcotic use some that he is having less constipation. ALLERGIES: RHUBARB, QUININE and TIZANIDINE. CURRENT LIST OF MEDICATIONS: Diazepam 10 mg 1 tablet daily as needed, oxycodone 10/325 twice a day p.r.n., Voltaren gel as needed, Mag-Ox 400 mg daily, aspirin 81 mg daily, simvastatin 40 mg at bedtime, Xarelto 20 mg daily, enalapril 5 mg daily, fish oil 1000 capsules daily and calcium daily. PQRS: 1. He has a history of spondylotic arthritis as well as osteoarthritis. Denies any rheumatoid arthritis. 2. Height is 5 feet 7 inches, weight is 198 and BMI is 31. 3. Vital signs 124/56, pulse is 71, respirations 16 and oxygen sat is 97. 4. Pain score is 2/10. 5. Denies dizziness. Does not need help walking or standing. Has not fallen in the last 3 months. 6. The patient is on Xarelto and does not currently taking any antihypertensive. 7. Opioid therapy is greater than 6 weeks; therefore, an opioid signed contract is on the chart. His risk assessment tool is low. [place] [address] PAIN MANAGEMENT CONSULTATION Name: YANETH DELA CRUZ Room #: REG [facility]AND[facility]enthil[facility] [id number] Admission: 10/02/18 ������������������ Attend Phys: Santa Kang Discharge: ������������������ Date of : 39 Report #: [id number] 39/70. 8. Recreational drug use, he denies. He is not a smoker and does not drink alcohol. We did check the prescription monitoring system. The patient is filling appropriately with his medications in a timely fashion from Dr. Emeka Timmons. The patient tells me that he does safeguard his medications. PHYSICAL EXAMINATION: GENERAL: This is a well-developed, well-nourished white gentleman who appears his stated age. He is alert and orientated and his affect is appropriate. HEENT: Normocephalic and atraumatic. Extraocular eye muscles are intact. Mucous membranes are moist. Hearing is adequate. MUSCULOSKELETAL: Easily, moves from sitting to standing position and he ambulates with a stable gait. He has tenderness in his neck and his lower back. His lower extremity strength judged to be 5/5 in all major muscle groups. IMPRESSION: 1. Post-laminectomy syndrome with facet arthroscopy and spondylitic sacroiliac joint pain. 2. History of cervical radiculopathy. 3. Iliac stents, on blood thinners. 4. Osteoarthritis with a history of partial left knee replacement. 5. Management of high risk medication in terms of written opioid agreement. We reviewed the fact that opiate medications are being used to provide analgesia adequate to support activities of daily living, not attempting to achieve a specific pain score on the 0-10 Visual Analog Scale. The current opiate medications are providing sufficient analgesia to allow the patient to participate in activities of daily living. The patient is not exhibiting any aberrant behavior suggestive of drug diversion. The patient is not having any adverse reactions to medications. The patient is not suffering from daytime somnolence or mental acuity changes. The patient is managing opiate-induced constipation with appropriate kgyn-hrx-zbgfulp agents and dietary considerations. The patient was counseled on concern for caution with operating a motor vehicle while using opiate medications. A physical exam was performed and the patient's functional status was evaluated. All patients with back pain were advised against the bed rest greater than 4 days and were advised to return to normal activities. Pain score assessment was noted and the treatment plan was reviewed with the patient. All current medications, both prescribed and OTC were reviewed and reconciled on the electronic medical record. Tobacco screening was accomplished and smoking cessation was advised when indicated. BMI was noted and diet/exercise modification was recommended for all patients following outside normal parameters. [facility] [address] [place] [address] PAIN MANAGEMENT CONSULTATION Name: YANETH DELA CRUZ Nick Room #: REG KIMBERLY Pierre.#: [id number] Admission: 10/02/18 ������������������ Attend Phys: Santa Kang Discharge: ������������������ Date of : 39 Report #: [id number] I reviewed with the patient today their responsibilities to safeguard prescription medications, reviewed their responsibility to utilize medications only as prescribed by the physician. They are to seek and receive pain medications only from 1 physician group ( [facility]). They are to use 1 pharmacy and keep the clinic informed if they change pharmacies. Their responsibilities include making followup visits in a timely fashion and to avoid abrupt discontinuation of medication usage. Their responsibilities further include bringing their medications (bottles from the pharmacy with residual pills) to the visit for possible confirmation of pill counts and the patient understands it is their responsibility to submit to random drug screens to ensure both that the medications prescribed are present, and that no other controlled substances are present. All prescriptions provided today were generated electronically. PLAN: 1. We discussed treatment options with the patient today. The patient tells me that he is doing very well currently rating his pain score at 2/10. He has been trying to decrease his medicine and he feels that he will be able to decrease his oxycodone once he has another injection in 1-2 months. 2. We decided on a plan that the patient will either take half a pill of his Percocet 10/325 or if need be at his next injection, we could decrease his oxycodone from 10/325 to 7.5/325. The patient tells me he will think about this and we will discuss it at his next appointment. The patient has already decreased his use of narcotics some as he returned his 8-week prescription, which we have destroyed, which was about 2 weeks past being filled. 3. Script was given today for Percocet 10/325, #60 for today, for an 8-week release; Valium 10 mg every day p.r.n., quantity 15 with 2 additional refills and Voltaren gel were given. 4. The patient was seen today with Dr. Timmons and he collaborated with care. ��������������������������������������������� <ELECTRONICALLY SIGNED> ���������������������������������������� By: Santa Kang ��������������������������������������������� 10/03/18 0839 [id number] Santa Kang /nt
== END ==
LOC: PAIN 07:02
DX: M96.1 Postlaminectomy syndrome, not elsewhere classified (principal); M54.12 Radiculopathy, cervical region; M19.90 Unspecified osteoarthritis, unspecified site; Z96.652 Presence of left artificial knee joint; Z88.8 Allergy status to other drugs, medicaments and biological substances; Z79.899 Other long term (current) drug therapy

== ENCOUNTER → 2018-11-30 | Outpatient (CLI) | payer OTHER, BC ==
[~2018-11-30] VITALS: Ht 170.2 cm; Wt 89.8 kg
--- NOTE | ~2018-11-30 | HPC ---
[facility] [place] [address] PAIN MANAGEMENT CONSULTATION Name: YANETH DELA CRUZ Room #: REG [facility] Ignacio.#: [id number] Admission: 11/30/18 ������������������ Attend Phys: Emeka Timmons MD Discharge: ������������������ Date of : 39 Report #: [id number] THIS REPORT FOR: //name// CC: LAMIN RAM Physician staff Emeka Timmons DATE OF SERVICE: 11/30/2018 CHIEF COMPLAINT: Followup visit for lumbar radiculopathy. HISTORY OF PRESENT ILLNESS: The patient returns to the pain clinic today complaining of pain in the lumbosacral distribution, mostly into the right L4-L5. The pain is 6/10 at its worst. He is here today for an epidural injection. He complains that his pain is interfering with standing, walking, bending and sitting. He gets relief only when he lies down. He is on oxycodone 10/325, but takes it sparingly. He does not take it on a regular basis. He is on diazepam prescribed by Dr. Sage at the [facility]. This was helpful for anxiety disorders and also helpful for spasm. All medications were reviewed and reconciled. He has no history or complaints of osteoarthritis. His BMI is 31. He is not a fall risk. He is on Xarelto, discontinued 4 days ago in anticipation for his injection. He is on hypertension medication provided by his primary care physician, enalapril. His blood pressure is well controlled. He has completed an opioid risk assessment tool, where he scores 0. He denies use of tobacco or alcohol. PHYSICAL EXAMINATION: GENERAL: Pleasant gentleman. VITAL SIGNS: Blood pressure 142/71, heart rate 85, respirations 20, O2 sat 98%. MUSCULOSKELETAL: Moves from sitting to standing position, ambulates without difficulty. He has positive pain across his low back. Positive pain with forward flexion and extension and has straight leg raising discomfort radiating into the right leg. IMPRESSION: Lumbar radiculopathy. PROCEDURE: Epidural steroid injection under fluoroscopic guidance. PROCEDURE IN DETAIL: He was taken to fluoroscopic suite, placed prone, skin prepped with ChloraPrep. Skin anesthetized over the L4-L5 interspace. A 20-gauge Tuohy epidural needle advanced in the epidural space with loss of resistance technique. There was no blood or CSF aspirated. A 1 mL of Omnipaque [address] [address] PAIN MANAGEMENT CONSULTATION Name: YANETH DELA CRUZ Room #: [facility] [id number] Admission: 11/30/18 ������������������ Attend Phys: Emeka Timmons MD Discharge: ������������������ Date of : 39 Report #: [id number] was injected and good spread of dye observed into the epidural space. This was then followed by 3 mL of 0.5% lidocaine mixed with 80 mg of triamcinolone. He tolerated the procedure well and was observed for 45 minutes and discharged. Followup visit planned in the pain clinic on an as needed basis. ��������������������������������������������� ���������������������������������������� By: ��������������������������������������������� 1828 1441 Emeka Timmons MD /dixon
[2018-11-30 13:56] VITALS: BP 142/71
--- NOTE | 2018-11-30 14:14 | NUR ---
Pain Clinic Assessment: 1. History of Osteoarthritis: Not Applicable History of Rheumatoid Arthritis: Not Applicable 2. Height: 5 ft. 7 in. 170.2 cm. Weight: 198.0 lb. oz. 89.812 kg. Patient's BMI: 31.0 3. Vital Signs: BP: 142/71 Pulse: 85 Resp: 20 Temp: 02 Sat: 98 ECG Mon: 4. Pain Intensity: 6 5. Fall Risk: Dizziness: N Needs help standing or walking: N Fallen in the last 3 months: N Fall risk comments: 6. Patient on Blood Thinner: XARELTO 7. History of Hypertension: Y 8. Opioid Therapy greater than 6 weeks: Y Opiate Contract Signed: 11/26/15 9. Risk Assessment Tool Provided: Larissa 10. Functional Assessment Tool: 11. Recreational Drug Use: Never Drug Type: Tobacco Use: Never Smoker Tobacco Type: Amount or Packs/day: How Many Years: Alcohol Use: No Frequency: Quant:
== END | disposition home or self-care (01) ==
LOC: PAIN 06:59
DX: M54.16 Radiculopathy, lumbar region (principal); I10 Essential (primary) hypertension; Z79.01 Long term (current) use of anticoagulants; Z88.8 Allergy status to other drugs, medicaments and biological substances; Z79.82 Long term (current) use of aspirin; Z79.899 Other long term (current) drug therapy

== ENCOUNTER → 2019-01-29 | Outpatient (CLI) | payer OTHER, BC ==
[~2019-01-29] VITALS: Ht 170.2 cm; Wt 90.4 kg
[~2019-01-29] MED LIST changes: +TIZANIDINE HCL 22 M1 PO
--- NOTE | ~2019-01-29 | HPC ---
[facility] [place] [address] PAIN MANAGEMENT CONSULTATION Name: YANETH DELA CRUZ Nick Room #: REG [facility].#: [id number] Admission: 01/29/19 ������������������ Attend Phys: Emeka Timmons MD Discharge: ������������������ Date of : 39 Report #: [id number] THIS REPORT FOR: //name// CC: LAMIN Deutsch Physician staff Emeka Timmons DATE OF SERVICE: 01/29/2019 Followup visit for low back pain with radiculopathy and now with pain radiating into the right hip. The patient returns to the pain clinic today for evaluation of a new problem. He complains of pain that radiates from his right groin down into the anterior thigh. This is different than his previously diagnosed radiculopathy. He describes it as a sharp pain that radiates into the groin. It is worse with standing, walking and activities. It is alleviated by medication, cold and sitting still. This limited his activity significantly. MEDICATIONS: Include ____ and oxycodone under opioid agreement. He is at low risk of addiction by the opioid risk tool. He is on Voltaren gel, diazepam for muscle spasm and occasional anxiety, magnesium oxide, aspirin, simvastatin, Xarelto, which he continued through today, enalapril, omega 3 and calcium carbonate. ALLERGIES: QUININE, RHUBARB, ____, WHICH MAKES HIM DIZZY. PHYSICAL EXAMINATION: Pleasant gentleman, 5 feet 7 inches and 199 pounds. BMI is 31. Blood pressure 111/60, heart rate 98 and respirations 14. Pain intensity is 3-4/10. Moves from a sitting to standing position, ambulates with a broad-based gait. He is not a fall risk and he has not fallen in the last 3 months. It should be noted that the patient is on Xarelto and cautions were provided. He does have a history of hypertension, also under treatment. He is on opioid medication and has signed an opioid agreement. His risk is 0 under the opioid risk tool. He denies tobacco and alcohol. Tenderness across his low back is noted. There are some limitations in flexion and extension. Straight leg raising is mildly positive. He has pain in his right hip that radiates through the groin and into the anterior thigh. X-rays of the hip are not available at this time, but this is considered to be significant for likely hip arthritis. X-rays can be ordered. Injection of the right hip was offered, but we will wait until he is off tizanidine. [address] [address] PAIN MANAGEMENT CONSULTATION Name: YANETH DELA CRUZ Room #: REG [facility].#: [id number] Admission: 01/29/19 ������������������ Attend Phys: Emeka Timmons MD Discharge: ������������������ Date of : 39 Report #: [id number] Time spent with the patient 25 minutes in consultation. ��������������������������������������������� ���������������������������������������� By: ��������������������������������������������� 1619 0028 Emeka Timmons MD /dixon
[2019-01-29 08:42] VITALS: BP 111/60
--- NOTE | 2019-01-29 08:56 | NUR ---
Pain Clinic Assessment: 1. History of Osteoarthritis: Not Applicable History of Rheumatoid Arthritis: Not Applicable 2. Height: 5 ft. 7 in. 170.2 cm. Weight: 199.2 lb. oz. 90.357 kg. Patient's BMI: 31.2 3. Vital Signs: BP: 111/60 Pulse: 98 Resp: 20 Temp: 02 Sat: 97 ECG Mon: 4. Pain Intensity: 3-4 5. Fall Risk: Dizziness: N Needs help standing or walking: N Fallen in the last 3 months: N Fall risk comments: 6. Patient on Blood Thinner: XARELTO 7. History of Hypertension: Y 8. Opioid Therapy greater than 6 weeks: Y Opiate Contract Signed: 11/26/15 9. Risk Assessment Tool Provided: Larissa 10. Functional Assessment Tool: 11. Recreational Drug Use: Never Drug Type: Tobacco Use: Never Smoker Tobacco Type: Amount or Packs/day: How Many Years: Alcohol Use: No Frequency: Quant:
== END ==
LOC: PAIN 08:06
DX: M54.16 Radiculopathy, lumbar region (principal)

== ENCOUNTER → 2019-02-12 | Outpatient (CLI) | payer OTHER, BC ==
[~2019-02-12] VITALS: Ht 170.2 cm; Wt 88.9 kg
--- NOTE | ~2019-02-12 | HPC ---
[facility] [address] [address] PAIN MANAGEMENT CONSULTATION Name: LANIEYANETH Room #: REG [facility] Ignacio.#: [id number] Admission: 02/12/19 ������������������ Attend Phys: Emeka Timmons MD Discharge: ������������������ Date of : 39 Report #: [id number] THIS REPORT FOR: //name// CC: LAMIN RAM Physician staff Emeka Timmons DATE OF SERVICE: 02/12/2019 Followup visit for chronic low back pain with radiculopathy, post-laminectomy syndrome. The patient is here today for an epidural injection. He has done very well with previous lumbar injections performed at L4-L5 to the right of midline. He has had a previous laminectomy above that level. Today, he reports that the pain is returning to similar levels after 5 weeks of nearly complete pain relief. We are hoping to extend the relief with another injection today. PQRS REVIEW: Is completed. 1. He denies osteoarthritis. 2. His BMI is 30.7. 3. Vital signs: Blood pressure 125/63, heart rate 88, respirations 16, O2 sat 96%. 4. Pain intensity 6/10. 5. He has not fallen in the last 3 months nor is he a fall risk. 6. He is on Xarelto, but discontinued it 5 days ago in anticipation of injection. 7. He has a history of hypertension. All medications were reviewed and reconciled. 8. He is on an opioid agreement signed in 2015. 9. He has completed an opioid risk assessment tool. His score is 0 suggesting low risk for addiction. 10. Functional assessment tool . 11. He denies use of tobacco and he denies use of alcohol, no misuse of illicit drugs. PHYSICAL EXAMINATION: VITAL SIGNS: As noted above. MUSCULOSKELETAL: He moves easily from sitting to standing position. His gait is mildly antalgic favoring his right leg. He has remarkable flexibility and can touch his fingers to the ground. He has good range of motion in flexion, extension, rotation and ecff-ae-vgmy tilt. There is tenderness across the low back. CHEST: Clear. [facility] [address] [place] [address] PAIN MANAGEMENT CONSULTATION Name: YANETH DELA CRUZ Room #: REG [facility] [id number] Admission: 02/12/19 ������������������ Attend Phys: Emeka Timmons MD Discharge: ������������������ Date of : 39 Report #: [id number] CARDIAC: Rhythm is regular. IMPRESSION: Chronic intractable low back pain, post-laminectomy syndrome. PROCEDURE: Lumbar epidural steroid injection under fluoroscopic guidance, L4-L5. DESCRIPTION OF PROCEDURE: The patient was taken to fluoroscopic suite, placed prone, skin prepped with ChloraPrep. Skin anesthetized over L4-L5. A 20-gauge Tuohy epidural needle at first advanced first attempt in the epidural space with loss of resistance. There was no blood or CSF aspirated. A 1 mL of Omnipaque injected. Good spread of dye observed into the epidural space followed by 3 mL of 0.5% lidocaine mixed with 80 mg of triamcinolone. He tolerated the procedure well and was observed for 45 minutes and discharged. Follow up as needed. ��������������������������������������������� ���������������������������������������� By: ��������������������������������������������� 0950 0307 Emeka Timmons MD /nt
[2019-02-12 09:12] VITALS: BP 125/63
--- NOTE | 2019-02-12 09:18 | NUR ---
Pain Clinic Assessment: 1. History of Osteoarthritis: Not Applicable History of Rheumatoid Arthritis: Not Applicable 2. Height: 5 ft. 7 in. 170.2 cm. Weight: 196.0 lb. oz. 88.905 kg. Patient's BMI: 30.7 3. Vital Signs: BP: 125/63 Pulse: 88 Resp: 16 Temp: 02 Sat: 96 ECG Mon: 4. Pain Intensity: 5-6 5. Fall Risk: Dizziness: N Needs help standing or walking: N Fallen in the last 3 months: N Fall risk comments: 6. Patient on Blood Thinner: XARELTO 7. History of Hypertension: Y 8. Opioid Therapy greater than 6 weeks: Y Opiate Contract Signed: 11/26/15 9. Risk Assessment Tool Provided: Larissa 10. Functional Assessment Tool: 11. Recreational Drug Use: Never Drug Type: Tobacco Use: Never Smoker Tobacco Type: Amount or Packs/day: How Many Years: Alcohol Use: No Frequency: Quant:
== END | disposition home or self-care (01) ==
LOC: PAIN 06:51
DX: M54.16 Radiculopathy, lumbar region (principal); G89.29 Other chronic pain; M96.1 Postlaminectomy syndrome, not elsewhere classified; I10 Essential (primary) hypertension; Z79.01 Long term (current) use of anticoagulants; Z79.891 Long term (current) use of opiate analgesic; Z88.8 Allergy status to other drugs, medicaments and biological substances; Z79.82 Long term (current) use of aspirin; Z79.899 Other long term (current) drug therapy; Z98.890 Other specified postprocedural states

== ENCOUNTER → 2019-04-30 | Outpatient (CLI) | payer OTHER, BC ==
[~2019-04-30] VITALS: Ht 170.2 cm; Wt 89.9 kg
[~2019-04-30] MED LIST changes: +OXYCODONE-ACET1 EACH PO
--- NOTE | ~2019-04-30 | HPC ---
[facility] [place] [address] PAIN MANAGEMENT CONSULTATION Name: YANETH DELA CRUZ Nick [facility] [id number] Admission: 04/30/19 Attend Phys: Emeka Timmons MD Discharge: Date of : 38 Report #: [id number] THIS REPORT FOR: //name// CC: LAMIN Deutsch MD Physician staff Emeka Timmons DATE OF SERVICE: 04/30/2019 Followup visit for chronic low back pain with radiculopathy, osteoarthritis with instability, right knee. History of cervical radiculopathy. Multiple pain generators. Management of high risk medications with tapering. The patient returns to pain clinic today in followup to discuss his tapering off of opioids. He has been on opioids for a number of years, which has been helpful for his low back and also his other chronic pains. Because of the opioid crisis and concerns, he has decided that he wants to taper. I reviewed back in 2018 when he was taking 2 oxycodone 10/325 mg tablets per day in addition to his diazepam once daily. He has now dropped his dose to 5 mg b.i.d. and plans to make a move to 2.5 mg b.i.d. He has not experienced any significant withdrawal and during the fall when the weather is nice, his pain is in better control. He may be able to taper off, which is his goal and I will also be supportive of that. We discussed strategies for continuing his slow taper. His biggest pain generator at this point in time is his right knee, which is unstable. When he walks, it causes a great deal of pain. I referred him previously for knee replacement and we discussed that option once again if he continues to have ongoing problems. This could be quite helpful for him. PQRS REVIEW: 1. He does have a history of osteoarthritis. 2. His BMI is 31.0. 3. Blood pressure 117/57, heart rate 59, respirations 14. 4. Pain intensity is 2 despite the tapering of his opioids. 5. No falls, no fall risk. 6. He is on Xarelto. 7. He is hypertensive and takes medication, which is provided for him by Dr. Deutsch. We reviewed and reconciled all medications including his opioids and antihypertensives. I also discussed the issues associated with the use of a benzodiazepine in combination with opioids. His blood pressure medication is enalapril. He denies use of tobacco and alcohol. His risk assessment tool score is 0, so he is quite low risk for opioid addiction. He has been on an opioid agreement [address] [address] PAIN MANAGEMENT CONSULTATION Name: LANIEYANETH Nick Room #: REG [facility]#: [id number] Admission: 04/30/19 Attend Phys: Emeka Timmons MD Discharge: Date of : 39 Report #: [id number] for many years, last signed in 2015. PHYSICAL EXAMINATION: As noted above. He is pleasant, alert and oriented with no signs of overmedication, depression or anxiety. Moves independently from sitting to standing position. His gait is antalgic. His spine is mildly tender. Examination of the right knee reveals positive drawer test and instability laterally and medially. Tenderness around the knee joint in general, both medial and lateral. IMPRESSION: 1. Chronic intractable pain, multiple pain generators with degenerative condition including lumbar spondylosis with radiculopathy. 2. Osteoarthritis with instability of the right knee. 3. Cervical radiculopathy. 4. Management of high risk medications. Prescription was provided for #60, 5 mg oxycodone 10/325 one tablet b.i.d. and a second prescription for #30 for 1 month, which will be at one-half tablet b.i.d. If there are problems with his tapering, he will call me. We discussed a brace for his knee when he is walking. This may provide some much needed stability. He should be careful about constriction in a seated position. He is already on a blood thinner for DVT. Followup visit planned in 2-3 months. By: [id number] Emeka Timmons MD /nt
[2019-04-30 08:48] VITALS: BP 117/57
--- NOTE | 2019-04-30 08:59 | NUR ---
Pain Clinic Assessment: 1. History of Osteoarthritis: Not Applicable History of Rheumatoid Arthritis: Not Applicable 2. Height: 5 ft. 7 in. 170.2 cm. Weight: 198.2 lb. oz. 89.903 kg. Patient's BMI: 31.0 3. Vital Signs: BP: 117/57 Pulse: 59 Resp: 14 Temp: 02 Sat: 94 ECG Mon: 4. Pain Intensity: 2 5. Fall Risk: Dizziness: N Needs help standing or walking: N Fallen in the last 3 months: N Fall risk comments: 6. Patient on Blood Thinner: XARELTO 7. History of Hypertension: Y 8. Opioid Therapy greater than 6 weeks: Y Opiate Contract Signed: 11/26/15 9. Risk Assessment Tool Provided: Larissa 10. Functional Assessment Tool: 11. Recreational Drug Use: Never Drug Type: Tobacco Use: Never Smoker Tobacco Type: Amount or Packs/day: How Many Years: Alcohol Use: No Frequency: Quant:
== END ==
LOC: PAIN 07:14
DX: M47.26 Other spondylosis with radiculopathy, lumbar region (principal); M17.11 Unilateral primary osteoarthritis, right knee; G89.4 Chronic pain syndrome

== ENCOUNTER → 2019-05-14 | Outpatient (CLI) | payer OTHER, BC ==
[~2019-05-14] VITALS: Ht 170.2 cm; Wt 90.4 kg
--- NOTE | ~2019-05-14 | HPC ---
[facility] [place] [address] PAIN MANAGEMENT CONSULTATION Name: LANIEYANETH Room #: REG [facility] Ignacio.#: [id number] Admission: 05/14/19 Attend Phys: Emeka Timmons MD Discharge: Date of : 39 Report #: [id number] THIS REPORT FOR: //name// CC: LAMIN RAM Physician staff Emeka Timmons DATE OF SERVICE: 05/14/2019 Followup visit for chronic pain, history of cervical radiculopathy, lumbar radiculopathy and diffuse osteoarthritis with unstable right knee. The patient was made at a goal of going off of opioids and has steadfastly tapered his medication sticking to his plan. He is at the point now where he is prepared to go off of his oxycodone altogether. His current daily dose is 1/2 tablet twice a day of oxycodone 5/325. A total of 5 mg oxycodone is 7.5 morphine milligram equivalents. From this point, I have told him he can go to a p.r.n. basis and then as he is able completely discontinue the opioid. PQRS: Review is positive for osteoarthritis. His BMI is 31.2. Vital signs: Blood pressure 142/61, heart rate 66. Pain intensity 4/10. He is not a fall risk. He is on Xarelto. He has a history of hypertension. He is on an opioid agreement and we have discussed his tapering plan. He is at low risk for addiction with a score of 0. He denies use of tobacco and alcohol. Followup visit is planned as needed. Final prescription for oxycodone 5/325 was provided today for 30 tablets. By: [id number] Emeka Timmons MD /nt
[2019-05-14 13:36] VITALS: BP 142/61
--- NOTE | 2019-05-14 13:54 | NUR ---
Pain Clinic Assessment: 1. History of Osteoarthritis: Not Applicable History of Rheumatoid Arthritis: Not Applicable 2. Height: 5 ft. 7 in. 170.2 cm. Weight: 199.2 lb. oz. 90.357 kg. Patient's BMI: 31.2 3. Vital Signs: BP: 142/61 Pulse: 66 Resp: 14 Temp: 02 Sat: 100 ECG Mon: 4. Pain Intensity: 4 5. Fall Risk: Dizziness: N Needs help standing or walking: N Fallen in the last 3 months: N Fall risk comments: 6. Patient on Blood Thinner: XARELTO 7. History of Hypertension: Y 8. Opioid Therapy greater than 6 weeks: Y Opiate Contract Signed: 11/26/15 9. Risk Assessment Tool Provided: Larissa 10. Functional Assessment Tool: 11. Recreational Drug Use: Never Drug Type: Tobacco Use: Never Smoker Tobacco Type: Amount or Packs/day: How Many Years: Alcohol Use: No Frequency: Quant:
== END ==
LOC: PAIN 05-13 13:58
DX: G89.29 Other chronic pain (principal); M54.16 Radiculopathy, lumbar region; M54.12 Radiculopathy, cervical region; M17.11 Unilateral primary osteoarthritis, right knee

== ENCOUNTER → 2019-07-19 | Outpatient (CLI) | payer OTHER, BC ==
[~2019-07-19] VITALS: Ht 167.6 cm; Wt 89.2 kg
--- NOTE | ~2019-07-19 | HPC ---
[facility] [place] [address] [place] [address] PAIN MANAGEMENT CONSULTATION Name: LANIEYANETH Room #: REG [facility].#: [id number] Admission: 07/19/19 Attend Phys: Emeka Timmons MD Discharge: Date of : 39 Report #: [id number] THIS REPORT FOR: //name// CC: Dr. Get RAM Physician staff Emeka Timmons DATE OF SERVICE: 07/19/2019 CHIEF COMPLAINT: Right hip pain. I have seen the patient off and on for nearly 10 years. He has chronic cervical radiculopathy which waxes and wanes. He is having some increasing pain in his neck that radiates down into his thumb, but it is not bad enough at this point in time that he wants to have further treatment for that condition. If necessary, we can perform a cervical epidural injection in the near future. He is here today because he has recently had exacerbation of pain in his right hip. He also has longstanding known osteoarthritis, but his pain has become so severe that it is affecting his ambulation and gait as well as his sleep. He has a history of left total knee replacement and known osteoarthritis. PQRS REVIEW: History of osteoarthritis and cervical spondylosis. He recently saw the chiropractor and this may have exacerbated his neck by resting maneuver. We will watch and wait to observe this. Vital signs: Blood pressure 139/74, heart rate 93, respirations 18, O2 sat 95. His BMI is 31.7 and his pain intensity is 8/10. He is not a fall risk. He is on Xarelto and will need to go off that if we perform any cervical injections. He is treated for hypertension as well. He is on an opioid agreement. We provided medicine for him under terms of that agreement last seen on 05/31 and medications prescribed on that day. He has completed an opioid risk tool and scored 0 and is at low risk for addiction. He knows the importance of safeguarding medication, is grateful for the benefits and does not have significant side effects. He denies use of tobacco, alcohol or marijuana. PHYSICAL EXAMINATION: VITAL SIGNS: As noted. GENERAL: He moves easily from sitting to standing position, but his gait is indeed antalgic. NECK: Examination of the neck reveals pain with range of motion in flexion, extension and rotation. Tenderness in mid neck, not below the occiput and not over the vertebral prominence at C7. There is an area that he says is [facility] [address] [place] [address] PAIN MANAGEMENT CONSULTATION Name: YANETH DELA CRUZ Room #: [facility] [id number] Admission: 07/19/19 Attend Phys: Emeka Timmons MD Discharge: Date of : 39 Report #: [id number] prominent, but I do not really palpate it. There is a bit of myofascial discomfort there. MUSCULOSKELETAL: Examination of the right hip is truly positive for pain with internal and external rotation as well as hip flexion. There is no crepitus. Tenderness also in the gluteal fold. IMPRESSION: 1. Severe right hip pain, likely osteoarthritis. He may be a candidate for hip replacement if this continues. It is severe in nature. I have ordered an MRI of his right hip. 2. Chronic cervicalgia with radiculopathy exacerbated by chiropractic treatments. 3. Hypertension. 4. Obstructive sleep apnea by history. 5. 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 6. Iliac stents with history of blood thinner. PLAN: To follow up after the results of the hip MRI available. We will make further recommendations at that time. By: [id number] Emeka Timmons MD /nt
[2019-07-19 13:36] VITALS: BP 139/74
== END ==
LOC: PAIN 06:54
DX: M54.12 Radiculopathy, cervical region (principal); I10 Essential (primary) hypertension; G47.30 Sleep apnea, unspecified; M96.1 Postlaminectomy syndrome, not elsewhere classified

== ENCOUNTER → 2019-07-30 | Outpatient (CLI) | payer OTHER, BC | LOC: MRI 07-25 13:29 | DX: S73.191A Other sprain of right hip, initial encounter (principal); M16.11 Unilateral primary osteoarthritis, right hip; M25.751 Osteophyte, right hip; M25.451 Effusion, right hip; M76.891 Other specified enthesopathies of right lower limb, excluding foot; M47.816 Spondylosis without myelopathy or radiculopathy, lumbar region; M25.78 Osteophyte, vertebrae; X58.XXXA Exposure to other specified factors, initial encounter; Y93.89 Activity, other specified; Y92.89 Other specified places as the place of occurrence of the external cause; Y99.8 Other external cause status ==

== ENCOUNTER → 2019-11-08 | Outpatient (CLI) | payer OTHER, BC ==
--- NOTE | ~2019-11-08 | HPC ---
[facility] [place] [address] PAIN MANAGEMENT CONSULTATION Name: LANIEYANETH Nick Room #: REG [facility] Olguin#: [id number] Admission: 11/08/19 Attend Phys: Santa Kang Discharge: Date of : 39 Report #: [id number] THIS REPORT FOR: cc: FAM - Family physician unknown FAM - Family physician unknown Santa Kang ~ CC: Santa Kang [facility] unknown LAMIN Timmons MD DATE OF SERVICE: 11/08/2019 This is a TeleMed appointment over the telephone since the patient has no visual capabilities. His visit was from 1:00 to 1:17 via the telephone for tele-health phone conversation that he agreed upon. HISTORY OF PRESENT ILLNESS: This is a pleasant 78-year-old gentleman who recently had a total right hip replacement at [facility] on 11/01/2019. He reports that he has been doing quite well with his rehab at home, at times walking half-a-mile a day, though he has been having increased pain after his walking exercises in his lower back and right hip. He states at times he has no pain prior to exercise, then it increases significantly, so he would like to have a prescription of oxycodone to take during this rehabilitation period and then decrease his medicine as he has in the past and off of his opioid medication. Prior to surgery, the patient had been able to decrease his opioids and slowly wean off. Today, his pain score is 0-5. He states it is a dull aching pain. He is not using a cane or walker. After his activity, his pain increases, the medicines are beneficial. He also reports to me that he had a urinary tract infection after his surgery, which has since cleared. He did require some hydrocodone briefly during that period. ALLERGIES: RHUBARB, QUININE, and TIZANIDINE. CURRENT MEDICATIONS: Diclofenac gel p.r.n., diazepam 10 mg p.r.n., Mag-Ox, aspirin, Xarelto, enalapril, fish oil, calcium. PATIENT'S PQRS: 1. He has significant osteoarthritis in his right hip. Denies any rheumatoid arthritis. Height, weight and vital signs were deferred due to TeleMed appointment today. The patient is not having a blood pressure cuff at home. 2. Pain score 0-4. 3. Fall risk. Denies dizziness, does not need help walking or standing, has not fallen in the last 3 months. 4. The patient is on Xarelto as well as medicines for hypertension. His opioid therapy is greater than 6 weeks; therefore, an opioid signed contract is on the [address] [address] PAIN MANAGEMENT CONSULTATION Name: YANETH DELA CRUZ Room #: REG [facility] Olguin#: [id number] Admission: 11/08/19 Attend Phys: Santa Kang Discharge: Date of : 39 Report #: [id number] chart. Risk assessment tool is low. Functional assessment is . 5. Recreational drug use, he denies. He is not a smoker and does not drink alcohol. According to the prescription monitoring system, the patient has not filled any oxycodone since last year. He does have a short script of hydrocodone, which he reported filling for his urinary tract infection. REVIEW OF SYSTEMS: He is alert and orientated, answering all my sentences completely. He is a good historian, placing his current pain score from 0-4 a day. The patient has no difficulty in hearing. MUSCULOSKELETAL: The patient reports he has a scar that is well healed on his right hip from his recent surgery. He reports he is able to get around very slowly at his house and has been ambulating at least half-a-mile with no walker or no cane. He does have increased pain after exercising. IMPRESSION: 1. Right hip pain, status post hip replacement. 2. Chronic cervicalgia with radiculopathy. 3. Hypertension. 4. Iliac stents with a history of blood thinner. 5. Post-laminectomy syndrome. PLAN: The patient is on TeleMed appointment. He is requesting a refill of his oxycodone since his recent hip replacement. He has had increased pain and is wondering if he may restart his medicines and then slowly decrease off his medicines again as he had in the past, experiences significant pain with exercising in therapy, which he is doing at home. Upon discussion with Dr. Emeka Timmons, it was decided to refill oxycodone 5/325, #60. The patient to take 2 tablets a day as needed for therapy for the first 20 days, then slowly decrease his medications over the next 10 days to 20 days as he is able to decrease half-a-pill a day until he has weaned himself off. The patient is very agreeable with this plan of care. 6. The patient reports he does not need Voltaren gel at this time. 7. The patient will call as needed for appointments for epidurals if his lumbar spine becomes bothersome or his cervical neck issues return. 8. The patient discussed this telephone conference with Dr. Emeka Timmons, the patient as well and collaborated care with the doctor. By: [id number] Santa Kang /dixon
== END ==
LOC: TELEPC 07:35 → PAIN 10:50
DX: M25.551 Pain in right hip (principal); M54.5 Low back pain; M54.2 Cervicalgia; M54.10 Radiculopathy, site unspecified; I10 Essential (primary) hypertension; M96.1 Postlaminectomy syndrome, not elsewhere classified; Z79.899 Other long term (current) drug therapy

== ENCOUNTER → 2019-12-06 | Outpatient (CLI) | payer OTHER, BC ==
[~2019-12-06] VITALS: Ht 167.6 cm; Wt 90.0 kg
[2019-12-06 12:25] VITALS: BP 135/74
--- NOTE | 2019-12-06 12:32 | NUR ---
Pain Clinic Assessment: 1. History of Osteoarthritis: Not Applicable History of Rheumatoid Arthritis: Not Applicable 2. Height: 5 ft. 6 in. 167.6 cm. Weight: 198.4 lb. oz. 89.994 kg. Patient's BMI: 32.0 3. Vital Signs: BP: 135/74 Pulse: 18 Resp: 92 Temp: 02 Sat: 97 ECG Mon: 4. Pain Intensity: 7-8 5. Fall Risk: Dizziness: N Needs help standing or walking: N Fallen in the last 3 months: Y Fall risk comments: 6. Patient on Blood Thinner: XARELTO 7. History of Hypertension: Y 8. Opioid Therapy greater than 6 weeks: Y Opiate Contract Signed: 11/26/15 9. Risk Assessment Tool Provided: Larissa 10. Functional Assessment Tool: 11. Recreational Drug Use: Never Drug Type: Tobacco Use: Never Smoker Tobacco Type: Amount or Packs/day: How Many Years: Alcohol Use: No Frequency: Quant:
--- NOTE | 2019-12-13 11:57 | HPC ---
[address] [place] [address] PAIN MANAGEMENT CONSULTATION Name: YANETH DELA CRUZ Room #: REG [facility] Ignacoi.#: [id number] Admission: 12/06/19 Attend Phys: Emeka Timmons MD Discharge: Date of : 39 Report #: [id number] THIS REPORT FOR: cc: [facility] - Family physician unknown FAM - Family physician unknown Emeka Timmons MD ~ CC: [facility] unknown Emeka Timmons DATE OF SERVICE: 12/06/2019 Followup visit for chronic pain. The patient is here today with a new pain. He fell landing squarely on his sacrum and coccyx. He has coccygodynia and tenderness over the sacrococcygeal ligament. Pain is severe enough that he scores it as an 8 or 9 when he sits. It is better when he lies down. It is also exacerbated by standing. He has spinal stenosis, which is also complicated by nerve pain and neurogenic claudication. Epidural injections may be helpful in the future for that. He has had a recent knee replacement and is improved. He is recovering. He was doing well with physical therapy. His fall was accidental. He was called by his , turnaround on an uneven stair and landed squarely on a metal strip at the top of the stairs. PQRS REVIEW: Positive for osteoarthritis involving the hips and knees. Vital signs: Blood pressure 135/74, heart rate 92, respirations 18. BMI is 32. Pain intensity 8/10. He has fallen within the last 3 months, although this is not a hypertensive, dizzy or medication-related fall. He is on blood thinner, Xarelto. He did not suffer any hematomas. He has a history of hypertension, under treatment. Opioid agreement signed in 2015. He takes no more than 1-2 oxycodone 5/325 tablets as needed for severe pain. He is at low risk for addiction by the ORT score. Functional assessment score today is 42. Denies tobacco and alcohol. IMPRESSION: 1. Chronic back pain with radiculopathy, spinal stenosis. 2. Cervical radiculopathy. 3. New onset coccygodynia with fracture of sacrum status post fall. PROCEDURE: Injection of the sacrococcygeal ligament/coccygodynia. Skin was prepped with ChloraPrep. Skin was anesthetized. Under fluoroscopic guidance, we identified the area of maximal tenderness in the very tip of the [address] [address] PAIN MANAGEMENT CONSULTATION Name: YANETH DELA CRUZ Room #: REG [facility] Olguin#: [id number] Admission: 12/06/19 Attend Phys: Emeka Timmons MD Discharge: Date of : 39 Report #: [id number] sacrum at the sacrococcygeal ligament. A 25-gauge needle was used to infiltrate a total of 5 mL of 0.5% bupivacaine mixed with 20 mg of triamcinolone on each side of the sacrococcygeal ligament and in the area of the ganglion impar. He tolerated the procedure well and was able to sit more comfortably in the recovery room and was discharged shortly thereafter. Followup planned as needed. I did prescribe for him once again oxycodone 5/325, #60 tablets as needed for only severe pain. <ELECTRONICALLY SIGNED> By: Emeka Timmons MD 12/13/19 [id number] Emeka Timmons MD /nt
== END | disposition home or self-care (01) ==
LOC: PAIN 06:43
PROVIDERS: ATTEND Anesthesiology Pain Medicine
DX: M53.3 Sacrococcygeal disorders, not elsewhere classified (principal); M54.12 Radiculopathy, cervical region; M54.16 Radiculopathy, lumbar region; M48.061 Spinal stenosis, lumbar region without neurogenic claudication; G89.29 Other chronic pain; Z98.890 Other specified postprocedural states

== ENCOUNTER → 2020-04-17 | Outpatient (CLI) | payer OTHER, BC ==
[~2020-04-17] VITALS: Ht 167.6 cm; Wt 91.2 kg
[~2020-04-17] MED LIST changes: +ZINC30 M1 PO
[2020-04-17 08:30] VITALS: BP 137/69
--- NOTE | 2020-04-17 08:35 | NUR ---
Pain Clinic Assessment: 1. History of Osteoarthritis: DENIES History of Rheumatoid Arthritis: DENIES 2. Height: 5 ft. 6 in. 167.6 cm. Weight: 201.0 lb. oz. 91.173 kg. Patient's BMI: 32.5 3. Vital Signs: BP: 137/69 Pulse: 93 Resp: 14 Temp: 02 Sat: 96 ECG Mon: 4. Pain Intensity: 8 TUESDAY 2-3 TODAY 5. Fall Risk: Dizziness: N Needs help standing or walking: N Fallen in the last 3 months: N Fall risk comments: 6. Patient on Blood Thinner: XARELTO 7. History of Hypertension: Y 8. Opioid Therapy greater than 6 weeks: Y Opiate Contract Signed: 11/26/15 9. Risk Assessment Tool Provided: Larissa 10. Functional Assessment Tool: 11. Recreational Drug Use: Never Drug Type: Tobacco Use: Never Smoker Tobacco Type: Amount or Packs/day: How Many Years: Alcohol Use: No Frequency: Quant:
--- NOTE | 2020-04-17 12:56 | HPC ---
[facility] [address] [place] [address] PAIN MANAGEMENT CONSULTATION Name: YANETH DELA CRUZ Room #: REG Kadi Olguin#: [id number] Admission: 04/17/20 Attend Phys: Santa Kang Discharge: Date of : 38 Report #: [id number] THIS REPORT FOR: cc: DMITRIY RAM APRN, KATHERINE D APRN Hocker, Amanda CNS ~ CC: Emeka Timmons MD DATE OF SERVICE: 04/17/2020 CHIEF COMPLAINT: Chronic low back pain, lumbar radiculopathy. HISTORY OF PRESENT ILLNESS: This is an 79-year-old gentleman who returns to the pain clinic today for refill of his opioid medications and to discuss a possible epidural injection. He has been having ongoing pain in his lower back that radiates into his right leg, following the L4-L5 dermatomal distribution. He reports he was cleaning his basement this weekend and moved several heavy objects and by Tuesday, his back was hurting quite significantly, he laid in then for 2 days and has slowly starting to resolve. He believes that he is needing another lumbar epidural injection. His previous injection was a year and a half ago that was beneficial at that time. The patient does report that the coccyx injection that Dr. Emeka Timmons gave him in November was short-lived, helping for about 48 hours that was due to a recent fall and fractured his sacrum. He reports that he has healed. Today, he is reporting a pain score of 2-3. Pain is increased with standing, walking or prolonged sitting. He feels the medication as well as repositioning himself are beneficial and he is down to his last pain pill. ALLERGIES: QUININE, TIZANIDINE. MEDICATIONS: Zinc, oxycodone 5/325, Voltaren gel, diazepam, magnesium, aspirin, Xarelto, enalapril, fish oil, and calcium. PQRS: 1. He is positive for osteoarthritis in his hips and knees. Denies rheumatoid arthritis. 2. Height is 5 feet 6 inches, weight is 201, BMI is 32. Vital signs, 137/69, pulse is 93, respirations 14, oxygen sat is 96. Pain score today is 2-3. Fall risk. Denies dizziness, does not need help walking or standing, has not fallen in the last 3 months. The patient is on Xarelto as well as medications for hypertension. His opioid therapy is greater than 6 weeks; therefore, an opioid signed contract is on the chart. Risk assessment tool is low. Functional assessment is 42/70. 3. Recreational drug use, denies. He is not a smoker. Does not drink alcohol. [address] [address] PAIN MANAGEMENT CONSULTATION Name: YANETH DELA CRUZ Room #: REG KIMBERLY Olguin#: [id number] Admission: 04/17/20 Attend Phys: Santa Kang Discharge: Date of : 38 Report #: [id number] According to the prescription monitoring system, the patient has not filled his opioids since November. He does take these very sparingly. He has been filling diazepam on a monthly basis from the [facility]. PHYSICAL EXAMINATION: GENERAL: He is alert and orientated 79-year-old gentleman who appears his stated age, placing his current pain score 2-3. HEENT: Normocephalic, atraumatic. Extraocular eye muscles are intact. He is wearing a mask and glasses. MUSCULOSKELETAL: He has a well-healed scar in his hips. Denies tenderness. Ambulates with a slightly antalgic gait. Pain is present in the lumbosacral region that radiates down his outer aspect of his right leg following the L4-L5 dermatomal distribution to his foot. He does have good range of motion in flexion, extension, side to side tilt. He moves easily from the standing to sitting position. His lower extremity strength judged to be symmetrical at 5/5. IMPRESSION: 1. Chronic back pain with radiculopathy. 2. Spinal stenosis. 3. Cervical radiculopathy. 4. Management of high risk medications under terms of written opioid agreement. 5. Iliac stents with a history of blood thinner, Xarelto. 6. Post-laminectomy syndrome. We reviewed the fact that opiate medications are being used to provide analgesia adequate to support activities of daily living, not attempting to achieve a specific pain score on the 0-10 Visual Analog Scale. The current opiate medications are providing sufficient analgesia to allow the patient to participate in activities of daily living. The patient is not exhibiting any aberrant behavior suggestive of drug diversion. The patient is not having any adverse reactions to medications. The patient is not suffering from daytime somnolence or mental acuity changes. The patient is managing opiate-induced constipation with appropriate isjg-cwu-lwbrryu agents and dietary considerations. The patient was counseled on concern for caution with operating a motor vehicle while using opiate medications. A physical exam was performed and the patient's functional status was evaluated. All patients with back pain were advised against the bed rest greater than 4 days and were advised to return to normal activities. Pain score assessment was noted and the treatment plan was reviewed with the patient. All current medications, both prescribed and OTC were reviewed and reconciled on the electronic medical record. Tobacco screening was accomplished and smoking cessation was advised when indicated. BMI was noted and diet/exercise modification was recommended for all patients following outside normal parameters. [address] [place] [address] PAIN MANAGEMENT CONSULTATION Name: YANETH DELA CRUZ Room #: REG [employer] [employer] [employer].#: [id number] Admission: 04/17/20 Attend Phys: Santa Kang Discharge: Date of : 39 Report #: [id number] I reviewed with the patient today their responsibilities to safeguard prescription medications, reviewed their responsibility to utilize medications only as prescribed by the physician. They are to seek and receive pain medications only from 1 physician group ( [facility]). They are to use 1 pharmacy and keep the clinic informed if they change pharmacies. Their responsibilities include making followup visits in a timely fashion and to avoid abrupt discontinuation of medication usage. Their responsibilities further include bringing their medications (bottles from the pharmacy with residual pills) to the visit for possible confirmation of pill counts and the patient understands it is their responsibility to submit to random drug screens to ensure both that the medications prescribed are present, and that no other controlled substances are present. All prescriptions provided today were generated electronically. PLAN: 1. We discussed treatment options with the patient today. The patient is requesting a refill of his oxycodone as well as his diazepam. I explained to him that according to the prescription monitoring system, [facility], we are unable to write this medication if he is filling it from another physician. The patient believes that medicine is not as beneficial as well script Dr. Timmons provides him, I explained to him we cannot write that medication. He could ask for a different traffic lieutenant when he fills it at the pharmacy to see if that is more beneficial. The patient states he does take it on very sparingly basis. 2. We will send a script electronically for oxycodone 5/325, #[address] Emeka Timmons. Again, the patient takes these sparingly and this prescription usually last several months. 3. I will send his diclofenac gel 2 grams q.i.d. 2 tubes with 2 additional refills sent to his pharmacy. He finds this very beneficial on his arthritic joints. 4. The patient will be sent for an appointment for a lumbar epidural in mid April by Dr. Emeka Timmons. He will need to stop his Xarelto and instructions will be given prior to discharge. 5. The patient's care was given by collaborated with Dr. Emeka Timmons today. He did see the patient as well. <ELECTRONICALLY SIGNED> By: Santa Kang 04/17/20 [id number] Santa Kang /nt
== END ==
LOC: PAIN 06:54
PROVIDERS: ATTEND Clinical Nurse Specialist Adult Health
DX: M54.16 Radiculopathy, lumbar region (principal); M54.12 Radiculopathy, cervical region; G89.29 Other chronic pain; M96.1 Postlaminectomy syndrome, not elsewhere classified; Z79.891 Long term (current) use of opiate analgesic

== ENCOUNTER → 2020-05-05 | Outpatient (CLI) | payer OTHER, BC ==
[~2020-05-05] VITALS: Ht 167.6 cm; Wt 91.6 kg
--- NOTE | ~2020-05-05 | HPC ---
[facility] [address] [place] [address] PAIN MANAGEMENT CONSULTATION Name: YANETH DELA CRUZ Room #: REG Kadi Pierre.#: [id number] Admission: 05/05/20 Attend Phys: Emeka Timmons MD Discharge: Date of : 38 Report #: [id number] CC: DMITRIY Sage MD DATE OF SERVICE: 05/05/2020 Followup visit for low back pain. The patient is an 79-year-old patient of mine who has had a number of different orthopedic and spinal pain generators over the years. Today, he presents with pain, classic in his presentation for lumbar spondylitic localized pain. Pain is in the lumbosacral segment. It does not radiate and it is worse with standing and weightbearing. When he is able to bend forward such as pushing a cart or in flexion or when he is sitting in a chair, he is comfortable. The pain is bad enough that he is limited in his standing ability and he is hopeful that we can provide some relief with injection. He is already taking medication. He is on oxycodone 5/325. He is on Xarelto, cannot take nonsteroidal anti-inflammatory drugs. He has tried exercise and do other important movements. He is resistant to chiropractic treatments as he nearly was injured with cervical manipulation years ago. PQRS: Positive for spondylitic pain and some arthritis of the hips and knees. His BMI is 32, blood pressure is 137/69, heart rate 93, respirations 14, O2 sat 96% on room air. Pain intensity today is 2-3, but on Tuesday, a week ago, the pain was an 8/10. He is off his Xarelto for 3 days in anticipation of injection. His hypertension has been controlled with medication. Opioid risk assessment score is 0. Functional assessment score 42. Denies tobacco or alcohol. IMPRESSION: Lumbar spondylosis with pain on the left. Pain is localized over the lower lumbar segment. PROCEDURE: Facet injections, L3-4, L4-5 and L5-S1 under fluoroscopic guidance. After informed consent, he was taken to the fluoroscopic suite, placed prone, skin prepped with ChloraPrep. Skin anesthetized over the L3-4, L4-5 and L5-S1 facet joints. A 25-gauge needle was gently advanced into the posterior inferior capsule of the joint and after negative aspiration, I injected each joint with 1 mL of 0.5% bupivacaine mixed with roughly 15 mg of triamcinolone. He tolerated the procedure well and was observed in recovery room, was feeling some relief before he can get off the table suggesting facet mechanisms. He was discharged with a followup visit planned as needed. We will continue to provide his medication under terms of written opioid agreement. By: [id number] Emeka Timmons MD /dixon
[2020-05-05 12:54] VITALS: BP 133/64
--- NOTE | 2020-05-05 13:07 | NUR ---
Pain Clinic Assessment: 1. History of Osteoarthritis: DENIES History of Rheumatoid Arthritis: DENIES 2. Height: 5 ft. 6 in. 167.6 cm. Weight: 202.0 lb. oz. 91.627 kg. Patient's BMI: 32.6 3. Vital Signs: BP: 133/64 Pulse: 76 Resp: 18 Temp: 02 Sat: 99 ECG Mon: 4. Pain Intensity: 4 5. Fall Risk: Dizziness: N Needs help standing or walking: N Fallen in the last 3 months: N Fall risk comments: 6. Patient on Blood Thinner: XARELTO 7. History of Hypertension: Y 8. Opioid Therapy greater than 6 weeks: Y Opiate Contract Signed: 11/26/15 9. Risk Assessment Tool Provided: Larissa 10. Functional Assessment Tool: 11. Recreational Drug Use: Never Drug Type: Tobacco Use: Never Smoker Tobacco Type: Amount or Packs/day: How Many Years: Alcohol Use: No Frequency: Quant:
== END | disposition home or self-care (01) ==
LOC: PAIN 07:10
PROVIDERS: ATTEND Anesthesiology Pain Medicine
DX: M47.816 Spondylosis without myelopathy or radiculopathy, lumbar region (principal); I10 Essential (primary) hypertension; M19.90 Unspecified osteoarthritis, unspecified site; Z98.890 Other specified postprocedural states; Z79.01 Long term (current) use of anticoagulants; Z79.899 Other long term (current) drug therapy